=== PATIENT | male | born 1940 | race African-American/Black ===

== ENCOUNTER 2016-07-26 16:39 | Emergency (ER) | payer OTHER ==
[~2016-07-26] VITALS: Ht 177.8 cm; Wt 78.7 kg
[~2016-07-26 16:39] MED LIST: ACET325T96 PO; ALLO100T PO; ARTISOL12 OPB; ASPCH81X PO; CALC625T PO; CILO50TA9 PO; ENAL10TA88 PO; FLUO20CA35 PO; HYDR25TA4 PO; INSDGI SC; INSUINJ17 SQ; LATA0.009 OPR; LORA10CA2 PO; LPR25 PO; NITR0.4S UT; PRAV40TA PO; RISP0.5T3 PO; TIMO0.2534 OPB; [UNRECOGNIZED DRUG - CODE] PO
[2016-07-26 16:54] VITALS: TEMP 36.6; Ht 177.8 cm; Wt 78.7 kg
[2016-07-26] MEDS ORDERED: SODIUM CHLORIDE 0.9% 500ML 500 ML IV STA (17:10)
--- NOTE | 2016-07-26 17:19 | EMERGENCY ROOM VISIT NOTE ---
History Report prepared by Hollyibalexandra: Jazmín Caputo Under the Supervision of: Dr. Marquez Rome D.O. First contact with patient: 17:04 Chief Complaint: HYPOGLYCEMIA Stated Complaint: HYPOGLYCEMIA Nursing Triage Summary: found in cell combative diaphoretic and confused blood sugar 30 History of Present Illness The patient is a 75 year old male who presents to the Emergency Room via ambulance with complaints of an episode of hypoglycemia this evening. The patient has a history of diabetes and is on insulin. The patient notes that he was feeling fine throughout the day today and ate lunch. He was given insulin by his nurse this morning but was not given insulin after lunch. His blood sugar was normal at lunch so he was not given insulin. The patient was writing a letter to his daughter this evening and does not remember anything after that. Per [facility] guards, the patient became very combative, confused, and diaphoretic. His blood sugar was 30 at that time. He was given Glucagon at the [facility]. En route to the emergency room he was given Dextrose IV. His blood sugar in the ambulance was 62 and improved to 76 upon arrival to the ED. Per nursing staff, the patient's clothes were drenched in sweat and he was incontinent of urine upon arrival. Denies headaches, chest pain, shortness of breath, nausea, vomiting, or other complaints Source of History: patient Onset: this evening Position: other (global) Symptom Intensity: blood sugar 30 Quality: other (hypoglycemia) Modifying Factors (Relieving): other (Dextrose) Associated Symptoms: + diaphoresis, + urinary symptoms (incontinent), No SOB , No chest pain, No headache, No nausea, No vomiting Note: Other symptoms: confused Review of Systems See HPI for pertinent positives & negatives. A total of 10 systems reviewed and were otherwise negative. Past Medical & Surgical Medical Problems: (1) CELINE (acute kidney injury) (2) Diabetes (3) Pancreatitis Surgical Problems: (1) H/O hernia repair Family History No pertinent family history stated. Social History Smoking Status: Current Every Day Smoker Housing Status: other (usp) Current/Historical Medications Scheduled Allopurinol (Zyloprim), 200 MG PO DAILY Aspirin (Aspirin Chewable), 81 MG PO DAILY Calcium Polycarbophil (Fibercon), 2 CAP PO BID Cilostazol (Pletal), 50 MG PO BID Enalapril (Vasotec), 10 MG PO DAILY Fluoxetine (Prozac), 40 MG PO DAILY Hydrochlorothiazide (Hctz), 25 MG PO DAILY Insulin Glargine (Lantus), 45 UNITS SC QAM Insulin Regular (Humulin-R), 14 UNITS SL TID Isosorbide Dinitrate (Isordil Tab), 30 MG PO BID Latanoprost 0.005% Oph (Xalatan 0.005% Oph), 1 DROP OPR HS Loratadine (Claritin), 10 MG PO QAM Metoprolol Tartrate (Lopressor), 25 MG PO BID Nitroglycerin (Nitrostat), 0.4 MG UT PRN Pravastatin Sodium (Pravachol), 40 MG PO HS Risperidone (Risperdal), 0.5 MG PO BID Timolol Maleate 0.5% Oph (Timoptic 0.5% Oph), 1 DROP OPB BID Scheduled PRN Acetaminophen Tab (Tylenol), 650 MG PO TID PRN for Pain Artificial Tear Solution (Artificial Tears), 1 DROP OPB TID PRN for DRY EYES Allergies Coded Allergies: Vitamin K (Verified Allergy, Unknown, UNKNOWN, 05/14/14) Physical Exam Vital Signs Date Time Temp Pulse Resp B/P Pulse Ox O2 Delivery O2 Flow Rate FiO2 07/26/16 19:43 63 16 116/76 97 07/26/16 19:25 61 16 141/46 98 Room Air 07/26/16 18:13 69 16 151/59 97 Room Air 07/26/16 16:54 36.6 52 20 190/65 96 Room Air 07/26/16 16:51 58 Physical Exam GENERAL: Patient is awake, alert, slow to answer questions but responds appropriately. EYES: The conjunctivae are clear. The pupils are round and reactive. EARS, NOSE, MOUTH AND THROAT: The nose is without any evidence of any deformity. Mucous membranes are dry. tongue is midline NECK: The neck is nontender and supple. RESPIRATORY: Normal respiratory effort is noted there is no evidence of wheezing rhonchi or rales CARDIOVASCULAR: Regular rate and rhythm noted there no murmurs rubs or gallops normal S1 normal S2 GASTROINTESTINAL: The abdomen is soft. Bowel sounds are present in all quadrants. Abdomen is nontender MUSCULOSKELETAL/EXTREMITIES: There is no evidence of gross deformity full range of motion is noted in the hips and shoulders SKIN: Trace pedal edema bilaterally. Venostasis changes were noted in both lower extremities. NEUROLOGIC: Patient is awake alert and oriented x3, no facial droop was noted, strength is symmetric. Medical Decision & Procedures Laboratory Results 07/26/16 18:04 Red Blood Count 4.06, Mean Corpuscular Volume 90.9, Mean Corpuscular Hemoglobin 30.0, Mean Corpuscular Hemoglobin Concent 33.1, Mean Platelet Volume 9.8, Neutrophils (%) (Auto) 76.8, Lymphocytes (%) (Auto) 15.2, Monocytes (%) (Auto) 5.0, Eosinophils (%) (Auto) 2.4, Basophils (%) (Auto) 0.4, Neutrophils # (Auto) 9.26, Lymphocytes # (Auto) 1.83, Monocytes # (Auto) 0.60, Eosinophils # (Auto) 0.29, Basophils # (Auto) 0.05 07/26/16 18:04 Test 07/26/16 16:52 07/26/16 18:04 07/26/16 18:35 Bedside Glucose 76 mg/dl (70-99) White Blood Count 12.05 K/uL (4.8-10.8) Red Blood Count 4.06 M/uL (4.7-6.1) Hemoglobin 12.2 g/dL (14.0-18.0) Hematocrit 36.9 % (42-52) Mean Corpuscular Volume 90.9 fL (80-100) Mean Corpuscular Hemoglobin 30.0 pg (25-34) Mean Corpuscular Hemoglobin Concent 33.1 g/dl (32-36) Platelet Count 221 K/uL (130-400) Mean Platelet Volume 9.8 fL (7.4-10.4) Neutrophils (%) (Auto) 76.8 % Lymphocytes (%) (Auto) 15.2 % Monocytes (%) (Auto) 5.0 % Eosinophils (%) (Auto) 2.4 % Basophils (%) (Auto) 0.4 % Neutrophils # (Auto) 9.26 K/uL (1.4-6.5) Lymphocytes # (Auto) 1.83 K/uL (1.2-3.4) Monocytes # (Auto) 0.60 K/uL (0.11-0.59) Eosinophils # (Auto) 0.29 K/uL (0-0.5) Basophils # (Auto) 0.05 K/uL (0-0.2) RDW Standard Deviation 44.4 fL (36.4-46.3) RDW Coefficient of Variation 13.4 % (11.5-14.5) Immature Granulocyte % (Auto) 0.2 % Immature Granulocyte # (Auto) 0.02 K/uL (0.00-0.02) Prothrombin Time 10.7 SECONDS (9.0-12.0) Prothromb Time International Ratio 1.0 (0.9-1.1) Activated Partial Thromboplast Time 30.8 SECONDS (21.0-31.0) Partial Thromboplastin Ratio 1.2 Anion Gap 8.0 mmol/L (3-11) Est Creatinine Clear Calc Drug Dose 47.8 ml/min Estimated GFR () 57.0 Estimated GFR (Non- 49.1 BUN/Creatinine Ratio 10.8 (10-20) Calcium Level 9.1 mg/dl (8.5-10.1) Total Bilirubin 0.4 mg/dl (0.2-1) Direct Bilirubin 0.1 mg/dl (0-0.2) Aspartate Amino Transf (AST/SGOT) 16 U/L (15-37) Alanine Aminotransferase (ALT/SGPT) 21 U/L (12-78) Alkaline Phosphatase 98 U/L (45-117) Total Creatine Kinase 150 U/L (39-308) Creatine Kinase MB 1.4 ng/ml (0.5-3.6) Creatine Kinase MB Ratio 0.9 (0-3.0) Troponin I 0.025 ng/ml (0-0.045) Total Protein 8.4 gm/dl (6.4-8.2) Albumin 3.4 gm/dl (3.4-5.0) Lipase 64 U/L (73-393) Urine Color YELLOW Urine Appearance CLEAR (CLEAR) Urine pH 7.0 (4.5-7.5) Urine Specific [place] 1.008 (1.000-1.030) Urine Protein NEG (NEG) Urine Glucose (UA) NEG (NEG) Urine Ketones NEG (NEG) Urine Occult Blood NEG (NEG) Urine Nitrite NEG (NEG) Urine Bilirubin NEG (NEG) Urine Urobilinogen NEG (NEG) Urine Leukocyte Esterase NEG (NEG) Laboratory results per my review. Medications Administered Medications (Trade) Dose Ordered Sig/Fuentes Route Start Time Stop Time Status Last Admin Dose Admin Sodium Chloride (Nss 500ml) 500 ml @ 999 mls/hr Q31M STAT IV 07/26/16 17:10 07/26/16 17:40 DC 07/26/16 18:13 999 MLS/HR ECG Indication: altered mental status Rate (beats per minute): 52 Rhythm: sinus bradycardia Findings: T-wave inversion (Inferior), no ectopy Comparison ECG Date: 05/17/14 Change: ST segment abnormality is new ED Course 1709: The patient was evaluated in room B5. A complete history and physical examination were performed. Orderd NSS 500 ml @ 999 mls/hr IV. 1912: Upon reevaluation, the patient is resting comfortably. I discussed the results and treatment plan with him. The patient verbalized agreement of the treatment plan. He was discharged home. Medical Decision Prior records/ancillary studies reviewed and summarized above. Nursing notes reviewed. Additional history obtained from [facility] staff. The patient's history was concerning for hypoglycemia. Differential diagnosis: Etiologies such as metabolic, infection, hypo/hyperglycemia, electrolyte abnormalities, cardiac sources, intracerebral event, toxicologic, neurologic, as well as others were entertained. The patient is a 75-year-old male who presented to the emergency department for an evaluation of hyperglycemia. The patient is an insulin-dependent diabetic. The patient's glucose was corrected and he was reevaluated multiple times. He was feeling much better on subsequent reevaluation in and was awake and alert. I discussed patient's laboratory results with him. He also had some abdomen abnormalities noted on EKG. He was encouraged to discuss with the [facility] physician follow-up for this which could include stress test or echocardiogram. Otherwise he was encouraged to continue all medications as prescribed and monitor his blood sugar. He was also encouraged to return to the emergency department immediately if symptoms change worsen or the need arises. Impression Primary Impression: Hypoglycemia Additional Impression: Abnormal EKG Scribe Attestation The scribe's documentation has been prepared under my direction and personally reviewed by me in its entirety. I confirm that the note above accurately reflects all work, treatment, procedures, and medical decision making performed by me. Departure Information Dispostion Home / Self-Care Referrals No Doctor, Assigned (PCP) Son [facility] DOCUMENTATION FORM, IMPORTANT VISIT INFORMATION, WORK / SCHOOL INSTRUCTIONS Patient Instructions Hypoglycemia, My [facility] Additional Instructions Follow-up with the [facility] physician this week for reevaluation. I would recommend repeat cardiac workup including a stress test and an echocardiogram for further evaluation of her abnormal EKG that was found in the emergency department today. Continue to all meals. Do not miss any meals. Problem Qualifiers
[2016-07-26 18:11] LABS: BASO % 0.4 %; BASO ABS # 0.05 K/uL (0-0.2); COMPLETE YES; EOS % 2.4 %; HEMATOCRIT 36.9 % (42-52); IG% 0.2 %; LYMPH % 15.2 %; LYMPH ABS # 1.83 K/uL (1.2-3.4); MEAN CELL VOLUME 90.9 fL (80-100); MEAN CORPUSCULAR HGB CONC 33.1 g/dl (32-36); MEAN PLATELET VOLUME 9.8 fL (7.4-10.4); NEUT % 76.8 %; PLATELET COUNT 221 K/uL (130-400); RED BLOOD COUNT 4.06 M/uL (4.7-6.1); WHITE BLOOD COUNT 12.05 K/uL (4.8-10.8)
[2016-07-26 18:22] LABS: PARTIAL THROMBOPLASTIN RATIO 1.2; PROTHROMBIN TIME (PATIENT) 10.7 SECONDS (9.0-12.0)
[2016-07-26 18:30] LABS: BUN/CREATININE RATIO 10.8 (10-20); CALCIUM 9.1 mg/dl (8.5-10.1); CREATININE 1.4 mg/dl (0.60-1.40); POTASSIUM 3.6 mmol/L (3.5-5.1)
[2016-07-26 18:35] LABS: CKMB/CK RATIO 0.9 (0-3.0)
[2016-07-26 18:56] LABS: URINE APPEARANCE CLEAR (CLEAR); URINE BILIRUBIN NEG (NEG); URINE COLOR YELLOW; URINE NITRITE NEG (NEG); URINE SPECIFIC GRAVITY 1.008 (1.000-1.030); UROBILINOGEN NEG (NEG)
[2016-07-26 18:59] LABS: MANUAL MICROSCOPIC REQUIRED? NO; REVIEW REQ? NO
[2016-07-26 19:43] VITALS: BP 116/76; PULSE 63; O2SAT 97
== END 2016-07-26 19:44 | disposition home or self-care (01) ==
LOC: EDBD 16:39 → C.EDB 16:40
DX: E11.649 Type 2 diabetes mellitus with hypoglycemia without coma (principal); Z79.4 Long term (current) use of insulin; F17.210 Nicotine dependence, cigarettes, uncomplicated; Z79.82 Long term (current) use of aspirin; Z79.899 Other long term (current) drug therapy; R94.31 Abnormal electrocardiogram [ECG] [EKG]

== ENCOUNTER 2016-12-02 12:59 | Inpatient (IN) | payer OTHER ==
[2016-12-02] VITALS (12 sets, daily range): BP systolic 134–178; BP diastolic 60–78; PULSE 49–65; TEMP 36.6–36.7; O2SAT 94–100; Ht 177.8 cm; Wt 77.5 kg
[~2016-12-02] VITALS: Ht 177.8 cm; Wt 77.5 kg
[2016-12-02] MEDS ORDERED: SODIUM CHLORIDE 0.9% 1000ML 1,000 ML IV STA (13:09)
[2016-12-02] MEDS ORDERED: FENTANYL CITRATE INJ 50 MCG/1 ML 2 ML VIAL IV STA (13:09)
[2016-12-02] MEDS ORDERED: NITROGLYCERIN 0.4 MG SL PER TAB CHARGE SL PRN (13:15)
[2016-12-02 13:21] LABS: BASO % 0.5 %; BASO ABS # 0.03 K/uL (0-0.2); COMPLETE YES; HEMATOCRIT 35.2 % (42-52); IG% 0.2 %; LYMPH % 35.2 %; LYMPH ABS # 2.21 K/uL (1.2-3.4); MEAN CELL VOLUME 94.4 fL (80-100); MEAN CORPUSCULAR HEMOGLOBIN 31.1 pg (25-34); MEAN PLATELET VOLUME 10.3 fL (7.4-10.4); MONO % 7.2 %; NEUT % 49.9 %; PLATELET COUNT 153 K/uL (130-400); RED BLOOD COUNT 3.73 M/uL (4.7-6.1); WHITE BLOOD COUNT 6.28 K/uL (4.8-10.8)
--- NOTE | 2016-12-02 13:25 | DIAGNOSTIC IMAGING REPORT ---
CHEST ONE VIEW PORTABLE CLINICAL HISTORY: Chest pain. COMPARISON STUDY: Chest radiograph May 14, 2014. FINDINGS: Pacer pads overlie the chest. There is no pneumothorax or pleural effusion. Mild cardiomegaly is unchanged. There is pulmonary vascular congestion without overt pulmonary edema. No consolidation is identified. IMPRESSION: 1. Pulmonary vascular congestion. 2. Mild cardiomegaly. Electronically signed by: Robert Atkins M.D. 12/02/2016 1:24 PM Dictated Date/Time: 12/02/2016 1:22 PM
[2016-12-02] MEDS ORDERED: NiCARDipine HCL INJ 2.5 MG/ML 10 ML AMP ONE (13:31)
[2016-12-02] MEDS ORDERED: HEPARIN SOD (PORCINE) 1000 UNIT/ML 10 ML VIAL ONE (13:31)
[2016-12-02] MEDS ORDERED: MIDAZOLAM HCL 1 MG/ML 2ML VIAL ONE (13:31)
[2016-12-02] MEDS ORDERED: NITROGLYCERIN/D5W 100MCG/ML 20ML SYR ONE (13:32)
[2016-12-02] MEDS ORDERED: DOCU100C31 PO (13:35)
[2016-12-02] MEDS ORDERED: CLOP1TAB15 PO (13:35)
[2016-12-02] MEDS ORDERED: DORZ2SOL17 OP (13:35)
[2016-12-02 13:36] LABS: CALCIUM 9.1 mg/dl (8.5-10.1)
[2016-12-02 13:37] LABS: ISTAT CREATININE 1.2 mg/dl (0.6-1.3); ISTAT HEMOGLOBIN 11.9 g/dl (14.0-18.0); ISTAT IONIZED CALCIUM 1.3 mmol/l (1.12-1.32)
[2016-12-02 13:40] LABS: CREATININE 1.4 mg/dl (0.60-1.40); POTASSIUM 4.3 mmol/L (3.5-5.1)
--- NOTE | 2016-12-02 13:40 | Procedure Note ---
Pre-Mod Sedation Assessment General Date of Moderate Sedation: Dec 02, 2016. Vital Signs: Vital Signs Past 12 Hours Date Time Temp Pulse Resp B/P (MAP) Pulse Ox O2 Delivery O2 Flow Rate FiO2 12/02/16 13:23 62 17 154/72 97 Room Air 12/02/16 13:16 58 12/02/16 13:10 36.7 74 22 126/63 99 Room Air 12/02/16 13:01 Room Air Review Cardiovascular: regular rate, rhythm, no edema, no gallop, no JVD, + systolic murmur Abdomen: non tender, soft Lungs: lungs clear Pre-Sedation Airway Assessment Oral Cavity: Dental Abnormalities (Edentulous) Able to Visualize Vocal Cords: No Short Thick Neck: No Hx of Sleep Apnea: No Smoking Status: Current Every Day Smoker Mallampati Classification: Class III Procedure Planning Yes Notes The planned sedation has been discussed with the patient and consent obtained. I have identified the patient, determined the appropriateness of sedation and have assessed the patient immediately prior to the procedure. All medicine(s) and interventions are by my order.
--- NOTE | 2016-12-02 13:42 | Cardiac Catheterization ---
Procedure Note Procedure Date Dec 02, 2016. Pre-Procedure Diagnosis STEMI AUC Score 9 Post-Procedure Diagnosis Mild CAD, Normal LV Systolic Function, Normal Intracardiac Pressures Procedure(s) Performed Coronary Angiography, Left Heart Cath, LV Angiography Donor Relations Associate Dr. Allen Tomato Paste Maker(s) Iris ZhengRTR Estimated Blood Loss 10 ml Medication(s) Fentanyl, Heparin, Nicardipine, Versed, Lidocaine 1% Summary of Findings Clinical indications: Acute chest pain in patient with CAD risk factors of diabetes mellitus, hypertension, dyslipidemia, family history of coronary artery disease, and cigarette smoking. Also history of peripheral arterial disease. Electrocardiogram with peak T-waves in the anterior leads associated with slight ST segment elevations. The patient reported a history of having had coronary artery stents. Catheterization site: 6 American glide sheath right radial artery. Catheters: It was 1st attempted to perform left coronary angiography using a 6 American EBU 3.75 guide catheter. This catheter would not cannulate the left main coronary artery. It was exchanged for a 6 American ALR1-2 guide catheter. Catheter was able to perform nonselective angiography of both the left and right coronary arteries. It was exchanged for a 6 American AL1 guide catheter. Selective left coronary angiography was then performed. Was then exchanged back for the ALR1-2 guide catheter. This catheter was then used to perform selective right coronary angiography. Left heart catheterization and left ventricular angiography were performed using a 6 American pigtail catheter. Hemostasis: Terumo TR band. Complications: None. Findings: Fluoroscopy revealed very minor coronary calcifications. There was no visualization of any coronary artery stents on fluoroscopy or angiography. The coronary circulation was codominant. The left main coronary artery was a large caliber vessel with ostial and distal 20 percent stenoses. Left main gave rise to medium to large caliber left anterior descending and left circumflex coronary arteries. It also gave rise to a small to medium caliber ramus artery. The ramus had 0-10 percent stenoses in its proximal and mid segment. The proximal LAD had 0-10 percent stenosis. The proximal LAD gave rise to a very small caliber 1st diagonal artery. Early mid LAD gave rise to a very small caliber 2nd diagonal artery. The mid LAD gave rise to a long medium caliber 3rd diagonal artery. The 3rd diagonal had 0-10 percent stenoses in its proximal, mid, and distal segment. The mid LAD had a 20 percent stenosis. The distal LAD terminated at the apex of the heart as a very small caliber vessel. The proximal left circumflex had a 20 percent stenosis. The mid circumflex gave rise to a small caliber marginal artery. Mid and distal circumflex had 0- 10 percent luminal diameter narrowing. The distal circumflex then gave rise to a very small caliber posterolateral artery. This vessel had no obstructive disease. The right coronary artery was a large caliber vessel. Mid segment with diffuse 10-30 percent stenoses. Distal segment with diffuse 10-20 percent stenoses. The distal RCA gave rise to a long medium caliber posterior descending artery which had a 20 percent ostial and proximal stenosis. TERENCE 3 flow was present throughout all coronary arteries and branches. There was no evidence of any intracoronary thrombus or dissection. Left ventricular angiography performed from the 30 degree right anterior oblique projection using a hand injection of contrast dye revealed all left ventricular wall segments to contract normally. The calculated LV ejection fraction was 64 percent. No mitral regurgitation was noted. Conclusions: Mild coronary artery disease. Normal left ventricular systolic function and ejection fraction. Normal left ventricular end diastolic pressure. Plan: There is no indication for coronary revascularization procedure. Would obtain serial electrocardiograms and cardiac enzymes. Cannot exclude the patient had transient intracoronary obstruction secondary to a thrombus and/or spasm. Would continue on aspirin and clopidogrel. Continue maximum therapy for CAD risk factor modification. Evaluate for noncardiac etiology to his chest pain. Of note is the patient has a history of pancreatic disease. On physical exam prior to the catheterization procedure he had abdominal tenderness. Would check pancreatic enzymes and liver function test. Hemodynamics Rest Ao: 144/42/82 mm Hg Final Ao: 156/58/96 mm Hg LV: 157/12 mm Hg Recommendations Medical therapy and/or Counseling Specimens None Radiation Exposure (mGy) 1021 Contrast (mls) 150 ml Visipaque Fluids (cc crystalloids) 61 Drains none Anesthesia Intravenous Versed and fentanyl. Lidocaine 1 percent for local anesthesia. Procedural Complication(s) None Disposition PCU ACC Data Cardiac Status Clinical evaluation leading to the procedure CAD Presntation: STEMI STEMI or Non-STEMI: Thrombolytics: No Anginal Classification: CCS IV Heart Failure: No Cardiogenic Shock w/in 24Hrs: No Cardiac Arrest w/in 24Hrs: No Imaging studies past 6 months: No Stress studies past 6 months: No Standard Exercise Stress Test: No Stress Echocardiogram: No Stress Testing w/SPECT MPI: No Cardiac CTA: No Coronary Anatomy Dominant: Co-dominant Left Main (% Stenosis): Ostial (20The), Distal (20) LAD (% Stenosis): Proximal (0-10), Mid (20) D1 (% Stenosis): Normal D2 (% Stenosis): Normal D3 (% Stenosis): Proximal (0-10), Mid (0-10), Distal (0-10) Circumflex (% Stenosis): Proximal (20), Mid (0-10), Distal (0-10) OM1 (% Stenosis): Normal L PL1 (% Stenosis): Normal RCA (% Stenosis): Mid (10-30), Distal (10-20) R PDA (% Stenosis): Ostial (20), Proximal (20) Left Ventricular Angiography EF (%): 64 Wall Motion: Inferior (Normal), Apical (Normal), Anterior (Normal) Mitral Regurgitation: None Diagnostic Physician's Name: Alejandro Allen M.D. Status: Emergency Closure Device Percutaneous Entry Location: Radial Closure Device: Radial Band Recommendations: Medical therapy and/or Counseling
--- NOTE | 2016-12-02 13:57 | EMERGENCY ROOM VISIT NOTE ---
History Report prepared by Ej: Kaylyn Estes Under the Supervision of: Dr. Jack Barr M.D. First contact with patient: 13:02 Chief Complaint: CARDIAC ASSESSMENT Stated Complaint: CHEST/BACK PAIN Nursing Triage Summary: back pain started at noon when awoken for meds. pt a/ox4, no sob, pt given ntg per als and 324 asa. pt reduced to a 3/10 after. History of Present Illness The patient is a 76 year old male who presents to the Emergency Room via EMS from [facility] with complaints of improved left sided chest pain starting about an hour ago. He woke up with the pain. He has pain radiation to the left arm. He also complains of back pain. He received Aspirin and Nitro in route to the Emergency Room with some improvement. He currently denies any shortness of breath. He denies any heart palpitations, lower extremity swelling, or any other complaints. He is unsure about being placed on any blood thinners. He has a history of a myocardial infarction and reports similar symptoms today. He has a history of diabetes, hypertension, and high cholesterol. He has been smoking a pack a day since he was a teenager. He had previous stenting several years ago at [facility]. He also has a history of DVT in the right leg after surgery as well as a history of bleeding from his stomach. He cannot remember if the stomach bleeding or the pancreas was the reason for the abdominal surgery many years ago. Source of History: patient Onset: about an hour ago Position: chest (left), other Timing: other (improved) Modifying Factors (Relieving): other (Aspirin and Nitro with some improvement) Associated Symptoms: + back pain, No SOB Review of Systems See HPI for pertinent positives & negatives. A total of 10 systems reviewed and were otherwise negative. Past Medical & Surgical Medical Problems: (1) Acute renal failure (2) CELINE (acute kidney injury) (3) Chest pain (4) Colitis (5) Dehydration (6) Diabetes (7) Diarrhea (8) DVT (deep venous thrombosis) (9) High cholesterol (10) Hypertension (11) Hypotension (12) Pancreatitis (13) Syncope Surgical Problems: (1) H/O hernia repair Family History Diabetes mellitus Social History Smoking Status: Current Every Day Smoker Marital Status: single Housing Status: other Occupation Status: other (Prisoner) Current/Historical Medications Scheduled Allopurinol (Zyloprim), 200 MG PO DAILY Aspirin (Aspirin Chewable), 81 MG PO DAILY Calcium Polycarbophil (Fibercon), 2 CAP PO BID Clopidogrel (Plavix), 75 MG PO DAILY Docusate Sodium (Docusate Sodium), 100 MG PO BID Dorzolamide Hcl (Trusopt Oph), 1 DROPS OP BID Enalapril (Vasotec), 10 MG PO DAILY Fluoxetine (Prozac), 30 MG PO DAILY Hydrochlorothiazide (Hctz), 25 MG PO DAILY Insulin Glargine (Lantus), 35 UNITS SC QAM Insulin Regular (Humulin-R), 1 DOSE SQ TID Isosorbide Dinitrate (Isordil Tab), 30 MG PO BID Latanoprost 0.005% Oph (Xalatan 0.005% Oph), 1 DROP OPR HS Nitroglycerin (Nitrostat), 0.4 MG UT PRN Pravastatin Sodium (Pravachol), 40 MG PO HS Risperidone (Risperdal), 0.25 MG PO HS Timolol Maleate 0.5% Oph (Timoptic 0.5% Oph), 1 DROP OPB BID Scheduled PRN Artificial Tear Solution (Artificial Tears), 1 DROP OPB TID PRN for DRY EYES Allergies Coded Allergies: Vitamin K (Verified Allergy, Unknown, UNKNOWN, 12/02/16) Physical Exam Vital Signs Date Time Temp Pulse Resp B/P (MAP) Pulse Ox O2 Delivery O2 Flow Rate FiO2 12/02/16 13:23 62 17 154/72 97 Room Air 12/02/16 13:16 58 12/02/16 13:10 36.7 74 22 126/63 99 Room Air 12/02/16 13:01 Room Air Physical Exam GENERAL: Patient is uncomfortable appearing and in moderate distress. HEENT: No acute trauma, normocephalic atraumatic, mucous membranes moist, no nasal congestion, no scleral icterus. NECK: No stridor, no adenopathy, no meningismus, trachea is midline. LUNGS: No dyspnea. Clear to auscultation and equal bilaterally. No wheeze, no rhonchi. HEART: Regular rate and rhythm. No murmurs, rubs, gallops appreciated. ABDOMEN: Soft, nontender, bowel sounds positive, no masses appreciated, no peritonitis. BACK: No midline tenderness, no CVA tenderness EXTREMITIES: Normal motion all extremities, no cyanosis, no edema. NEUROLOGIC: Alert and oriented, no acute motor or sensory deficits, no focal weakness, cranial nerves grossly intact. SKIN: No rash, no jaundice, no diaphoresis. Medical Decision & Procedures ER Provider Diagnostic Interpretation: X ray results are stated below per my interpretation and the radiologist's interpretation. CHEST ONE VIEW PORTABLE CLINICAL HISTORY: Chest pain. COMPARISON STUDY: Chest radiograph May 14, 2014. FINDINGS: Pacer pads overlie the chest. There is no pneumothorax or pleural effusion. Mild cardiomegaly is unchanged. There is pulmonary vascular congestion without overt pulmonary edema. No consolidation is identified. IMPRESSION: 1. Pulmonary vascular congestion. 2. Mild cardiomegaly. Electronically signed by: Robert Atkins M.D. 12/02/2016 1:24 PM Dictated Date/Time: 12/02/2016 1:22 PM Laboratory Results 12/02/16 13:06 Red Blood Count 3.73, Mean Corpuscular Volume 94.4, Mean Corpuscular Hemoglobin 31.1, Mean Corpuscular Hemoglobin Concent 33.0, Mean Platelet Volume 10.3, Neutrophils (%) (Auto) 49.9, Lymphocytes (%) (Auto) 35.2, Monocytes (%) (Auto) 7.2, Eosinophils (%) (Auto) 7.0, Basophils (%) (Auto) 0.5, Neutrophils # (Auto) 3.14, Lymphocytes # (Auto) 2.21, Monocytes # (Auto) 0.45, Eosinophils # (Auto) 0.44, Basophils # (Auto) 0.03 12/02/16 13:06 Test 12/02/16 13:06 12/02/16 13:24 White Blood Count 6.28 K/uL (4.8-10.8) Red Blood Count 3.73 M/uL (4.7-6.1) Hemoglobin 11.6 g/dL (14.0-18.0) Hematocrit 35.2 % (42-52) Mean Corpuscular Volume 94.4 fL (80-100) Mean Corpuscular Hemoglobin 31.1 pg (25-34) Mean Corpuscular Hemoglobin Concent 33.0 g/dl (32-36) Platelet Count 153 K/uL (130-400) Mean Platelet Volume 10.3 fL (7.4-10.4) Neutrophils (%) (Auto) 49.9 % Lymphocytes (%) (Auto) 35.2 % Monocytes (%) (Auto) 7.2 % Eosinophils (%) (Auto) 7.0 % Basophils (%) (Auto) 0.5 % Neutrophils # (Auto) 3.14 K/uL (1.4-6.5) Lymphocytes # (Auto) 2.21 K/uL (1.2-3.4) Monocytes # (Auto) 0.45 K/uL (0.11-0.59) Eosinophils # (Auto) 0.44 K/uL (0-0.5) Basophils # (Auto) 0.03 K/uL (0-0.2) RDW Standard Deviation 48.9 fL (36.4-46.3) RDW Coefficient of Variation 14.3 % (11.5-14.5) Immature Granulocyte % (Auto) 0.2 % Immature Granulocyte # (Auto) 0.01 K/uL (0.00-0.02) Est Creatinine Clear Calc Drug Dose 44.2 ml/min Estimated GFR () 56.6 Estimated GFR (Non- 48.8 BUN/Creatinine Ratio 10.0 (10-20) Calcium Level 9.1 mg/dl (8.5-10.1) Total Creatine Kinase 126 U/L (39-308) Creatine Kinase MB 1.3 ng/ml (0.5-3.6) Creatine Kinase MB Ratio 1.0 (0-3.0) Troponin I 0.020 ng/ml (0-0.045) Bedside Hemoglobin 11.9 g/dl (14.0-18.0) Bedside Hematocrit 35 % (42-52) Bedside Sodium 141 mEq/L (135-144) Bedside Potassium 4.4 mEq/L (3.3-5.0) Bedside Chloride 99 mEq/L (101-112) Bedside Total CO2 27 mEq/l (24-31) Anion Gap 20.0 mmol/L (16-25) Bedside Blood Urea Nitrogen 15 mg/dl (7-18) Bedside Creatinine 1.2 mg/dl (0.6-1.3) Bedside Glucose (other) 282 mg/dl (70-99) Bedside Ionized Calcium (Marleny) 1.30 mmol/l (1.12-1.32) Laboratory results as reviewed by me. Medications Administered Medications (Trade) Dose Ordered Sig/Fuentes Route Start Time Stop Time Status Last Admin Dose Admin Nitroglycerin (Nitrostat Tab) 0.4 mg PRN PRN SL 12/02/16 13:15 12/02/16 14:54 DC 12/02/16 13:17 0.4 MG Sodium Chloride 1,000 ml @ 999 mls/hr Q1H1M STAT IV 12/02/16 13:09 12/02/16 14:09 DC 12/02/16 13:09 999 MLS/HR Fentanyl Citrate (Fentanyl Inj) 50 mcg NOW STAT IV 12/02/16 13:09 12/02/16 13:11 DC 12/02/16 13:17 50 MCG ECG Indication: chest pain Rate (beats per minute): 56 Rhythm: sinus bradycardia Findings: no ectopy, other (Acute ST elevation in anterior leads with hyperacute T waves) Change: Acute ST elevation in ant leads with hyperacute T waves are acute changes when compared to previous EKG by EMS. ED Course 1302: The patient was evaluated in room B09. A complete history and physical exam was performed. 1309: Fentanyl Inj 50 mcg IV, Sodium Chloride 1000 ml @ 999 mls/hr IV 1315: Nitroglycerin 0.4 mg SL 1326: I reevaluated the patient whose pain has improved. Discussed results and treatment plan with the patient. He verbalized understanding and agreement with the treatment plan. I discussed the patient's case with Dr. Allen, lsat instructor with [facility]. He evaluated the patient and agreed to take him to the [facility]. 1358: I discussed the patient's case with Dr. Andrews, from [facility] Hospitalist Service. Medical Decision Differential: Cardiac Ischemia (STEMI, NSTEMI, Unstable Angina, etc), Aortic Dissection, Arrhythmia, Pulmonary Embolism, Pneumonia, Pneumothorax, MSK, Infectious, Pericarditis/Myocarditis, Esophageal Rupture, Gastrointestinal, amongst other pathologies entertained. Medication Reconciliation: I attest that I have personally reviewed the patient 's current medication list. Blood pressure screening: Patient was found to have an elevated blood pressure and was referred to the hospitalist for recheck and further treatment. 76 yr old male made aware to me by EMS prior to arrival. Initial EKG by EMS not consistent with STEMI with poor baseline. On arrival patient already received ASA/SLNTG. EKG on arrival shows developing STEMI, very early with significant upsloping ST segments. This is acute change from previous EKG. Patient stating history of CAD with stents placed in past. Extensive PMH with multiple CAD risk factors. Given small dose IV fentanyl along with further SLNTG. Initial labs sent, CXR obtained. Non-focal exam without any specific findings to point to dissection, pe, etc. Notes history of DVT though no evidence of that currently. He has no SHOB, nor tearing chest pain, nor syncope. Interventional Cards in to see and agree with concern for STEMI and will take for heart cath. Hospitalist made aware of patient while en route to [facility]. Consults Time Called: 1320 Consulting Physician: Dr. Allen, lsat instructor with [facility] Returned Call: 1326 I discussed the patient's case with Dr. Allen, lsat instructor with [facility]. He evaluated the patient and agreed to take him to the [facility]. Additional Consults: Time Called: 1326 [facility]ed [facility] Returned Call: 1358 Additional Comments: I discussed the patient's case with Dr. Andrews[facility]. Impression Primary Impression: ST elevation myocardial infarction (STEMI) of anterior wall Critical Care I have personally spent greater than 45 minutes of critical care time in the direct management of this patient. This includes bedside care, interpretation of diagnostic studies, and testing, discussion with consultants, patient, and other required patient management activities. This 45 minutes is in excess of all separately billable procedures. Scribe Attestation The scribe's documentation has been prepared under my direction and personally reviewed by me in its entirety. I confirm that the note above accurately reflects all work, treatment, procedures, and medical decision making performed by me. Departure Information Dispostion Being Evaluated By Hospitalist Referrals Son SHERIFF (PCP) Patient Instructions [facility]
[2016-12-02] MEDS ORDERED: SODIUM CHLORIDE 0.9% 1000ML 250 ML IV PRN (14:34)
[2016-12-02] MEDS: SODIUM CHLORIDE 0.9% 1000ML 1,000 ML IV SCH (14:40)
[2016-12-02] MEDS ORDERED: ARTIFICIAL TEARS OP SOLN OPB PRN ×2 (14:45)
[2016-12-02] MEDS ORDERED: ATROPINE SULFATE 0.1 MG/ML 5ML SYR IV PRN (14:45)
[2016-12-02] MEDS ORDERED: NITROGLYCERIN 0.4 MG SL PER TAB CHARGE UT PRN (14:45)
[2016-12-02] MEDS ORDERED: ONDANSETRON INJ 2 MG/ML 2 ML VIAL IV PRN ×2 (14:45→15:30)
[2016-12-02] MEDS ORDERED: ACETAMINOPHEN 325 MG TAB PO PRN (14:45)
--- NOTE | 2016-12-02 14:45 | Procedure Note ---
Post-Mod Sedation Assessment General Date of Moderate Sedation Dec 02, 2016. Vital Signs: Vital Signs Past 12 Hours Date Time Temp Pulse Resp B/P (MAP) Pulse Ox O2 Delivery O2 Flow Rate FiO2 12/02/16 13:23 62 17 154/72 97 Room Air 12/02/16 13:16 58 12/02/16 13:10 36.7 74 22 126/63 99 Room Air 12/02/16 13:01 Room Air Review - Discharge Criteria Vital Signs Stable: Yes Alert/Oriented/Conversant: Yes Returned to Baseline Mental St: Yes Nausea Absent/Minimal: Yes Pain/Discomfort/Absent/Minimal: Yes Normal/Baseline Respirations: Yes Active Bleeding?: No Pt Received D/C Instructions: N/A Prescriptions Given: None Specific Proced. D/C Criteria Distal Pulses Present (Cardiac: Yes Groin site assessed-Card Cath: N/A Voided Prior To Discharge: N/A Discharged Patients Adult Escort/Transportation: N/A
[2016-12-02] MEDS ORDERED: ACETAMINOPHEN IV 100 ML IV PRN (15:30)
[2016-12-02] MEDS ORDERED: DEXTROSE 50% 50 ML SYR IV PRN (15:30)
[2016-12-02] MEDS ORDERED: DiphenhydrAMINE HCL 50 MG/ML VIAL IV PRN ×2 (15:30)
[2016-12-02] MEDS ORDERED: GLUCAGON FOR INJ 1 MG VIAL SQ PRN (15:30)
[2016-12-02] MEDS ORDERED: GLUCOSE 40% GEL 15 GM TUBE PO PRN (15:30)
[2016-12-02] MEDS ORDERED: GLUCOSE 10 TABS/TUBE PO PRN (15:30)
--- NOTE | 2016-12-02 15:38 | [facility] Post Operative Brief Note ---
Preliminary Procedure Note Procedure Date Dec 02, 2016. Pre-Procedure Diagnosis STEMI AUC Score 9 Post-Procedure Diagnosis Mild CAD, Normal LV Systolic Function, Normal Intracardiac Pressures Procedure(s) Performed Coronary Angiography, Left Heart Cath, LV Angiography Pan Helper Dr. Allen Test Consultant(s) Iris ZhengRTAlecia Estimated Blood Loss 15 ml Medication(s) Fentanyl, Heparin, Nicardipine, Versed, Lidocaine 1% Preliminary Findings Clinical indications: Acute chest pain in patient with CAD risk factors of diabetes mellitus, hypertension, dyslipidemia, family history of coronary artery disease, and cigarette smoking. Also history of peripheral arterial disease. Electrocardiogram with peak T-waves in the anterior leads associated with slight ST segment elevations. The patient reported a history of having had coronary artery stents. Catheterization site: 6 Ghanaian glide sheath right radial artery. Catheters: It was 1st attempted to perform left coronary angiography using a 6 Ghanaian EBU 3.75 guide catheter. This catheter would not cannulate the left main coronary artery. It was exchanged for a 6 Ghanaian ALR1-2 guide catheter. Catheter was able to perform nonselective angiography of both the left and right coronary arteries. It was exchanged for a 6 Ghanaian AL1 guide catheter. Selective left coronary angiography was then performed. Was then exchanged back for the ALR1-2 guide catheter. This catheter was then used to perform selective right coronary angiography. Left heart catheterization and left ventricular angiography were performed using a 6 Ghanaian pigtail catheter. Hemostasis: Terumo TR band. Complications: None. Findings: Fluoroscopy revealed very minor coronary calcifications. There was no visualization of any coronary artery stents on fluoroscopy or angiography. The coronary circulation was codominant. The left main coronary artery was a large caliber vessel with ostial and distal 20 percent stenoses. Left main gave rise to medium to large caliber left anterior descending and left circumflex coronary arteries. It also gave rise to a small to medium caliber ramus artery. The ramus had 0-10 percent stenoses in its proximal and mid segment. The proximal LAD had 0-10 percent stenosis. The proximal LAD gave rise to a very small caliber 1st diagonal artery. Early mid LAD gave rise to a very small caliber 2nd diagonal artery. The mid LAD gave rise to a long medium caliber 3rd diagonal artery. The 3rd diagonal had 0-10 percent stenoses in its proximal, mid, and distal segment. The mid LAD had a 20 percent stenosis. The distal LAD terminated at the apex of the heart as a very small caliber vessel. The proximal left circumflex had a 20 percent stenosis. The mid circumflex gave rise to a small caliber marginal artery. Mid and distal circumflex had 0- 10 percent luminal diameter narrowing. The distal circumflex then gave rise to a very small caliber posterolateral artery. This vessel had no obstructive disease. TERENCE 3 flow was present throughout all coronary arteries and branches. There was no evidence of any intracoronary thrombus or dissection. Left ventricular angiography performed from the 30 degree right anterior oblique projection using a hand injection of contrast dye revealed all left ventricular wall segments to contract normally. The calculated LV ejection fraction was 64 percent. No mitral regurgitation was noted. Conclusions: Mild coronary artery disease. Normal left ventricular systolic function and ejection fraction. Normal left ventricular end diastolic pressure. Plan: There is no indication for coronary revascularization procedure. Would obtain serial electrocardiograms and cardiac enzymes. Cannot exclude the patient had transient intracoronary obstruction secondary to a thrombus and/or spasm. Would continue on aspirin and clopidogrel. Continue maximum therapy for CAD risk factor modification. Evaluate for noncardiac etiology to his chest pain. Of note is the patient has a history of pancreatic disease. On physical exam prior to the catheterization procedure he had abdominal tenderness. Would check pancreatic enzymes and liver function test. Recommendations Medical therapy and/or Counseling Specimens None Fluids (cc crystalloids) 61 Drains none Anesthesia Intravenous Versed and fentanyl. Lidocaine 1 percent for local anesthesia. Procedural Complication(s) None Disposition PCU
[2016-12-02] MEDS: INSULIN ASPART 100 UNITS/ML 3 ML PEN SC SCH ×2 (16:15→20:49)
--- NOTE | 2016-12-02 16:43 | CARDIOLOGY CONSULTATION ---
DATE OF CONSULTATION: 12/02/2016 DATE OF CONSULTATION: 12/02/2016. REFERRING PHYSICIAN: Jack Barr M.D. ATTENDING PHYSICIAN: Jhonny Andrews M.D. CONSULTATION: Alejandro Allen M.D. HISTORY OF PRESENT ILLNESS: The patient is a 76-year-old -[place] male. He is a prisoner at [facility]. He woke at approximately 12:00 noon today with complaints of a retrosternal chest pressure radiating into his left arm and back. No associated dyspnea, nausea, or diaphoresis. Because of this discomfort, he was transferred to [facility] for evaluation. Electrocardiogram performed at [facility] revealed concave ST segment elevations in leads V1-V4. Peak and prominent T-waves in leads V2, V3, and V4. T-wave inversions in the inferior leads. Based on his symptoms and electrocardiogram, a heart alert was called. The patient reports a history of coronary artery disease. He reports having had 3 myocardial infarctions in the past. His medical record states he has undergone stent procedures. 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 Post-pancreatic surgery, he is insulin-dependent diabetic. He reports a history of peripheral vascular disease. He reports a history of a "clot" in one of his toes. He reports that in the past, he was treated with anticoagulation therapy. History of hypertension, diabetes mellitus, dyslipidemia. Past history also significant for BPH, gouty arthritis, gastritis, and paranoid schizophrenia,. The patient was evaluated by me in the Emergency Department. Following acquisition of informed consent, he was brought emergently to the cardiac catheterization lab for cardiac catheterization and possible coronary intervention. The procedure was performed via a 6-Malay sheath in the right radial artery. It revealed a codominant circulation. Fluoroscopy did not reveal any evidence of intracoronary stents. None were seen on angiography of the vessels. He had no significant obstructive coronary artery disease, 20% left main, LAD, and left circumflex stenoses. A 30% mid RCA stenosis, 20% PDA stenosis. Left ventricular angiography revealed normal LV wall motion. Calculated LV ejection fraction 64%. No complications with the procedure. At the completion of procedure, he had no complaints of chest pain or other anginal type symptoms. Of note, is that there was TERENCE 3 flow throughout all the coronary arteries. There is no evidence of any intracoronary thrombus or dissection. PAST MEDICAL HISTORY: 1. As above. 2. Admission to [facility] 05/15/2014 for diarrhea. PAST SURGICAL HISTORY: 1. Status post appendectomy. 2. Status post pancreatic surgery. 3. Status post suturing repair of a large scalp laceration. ALLERGIES AND ADVERSE DRUG REACTIONS: VITAMIN K. MEDICATIONS: At time of admission were reported to be allopurinol 200 mg daily, aspirin 81 mg daily, FiberCon 2 capsules b.i.d., clopidogrel 75 mg daily, docusate sodium 100 mg b.i.d., Trusopt ophthalmic solution 1 drop OP b.i.d., enalapril 10 mg daily, fluoxetine 30 mg daily, HCTZ 25 mg daily, Lantus insulin 35 units subcutaneous daily a.m., regular insulin sliding scale, isosorbide dinitrate 30 mg b.i.d., Xalatan eyedrops 1 drop OPR at bedtime, sublingual nitroglycerin p.r.n. chest pain, Risperdal 0.25 mg at bedtime, timolol 0.5% one drop OPB b.i.d., pravastatin 40 mg at bedtime, Artificial Tears p.r.n. SOCIAL HISTORY: The patient is a prisoner at [facility]. He smokes cigarettes for up to 68 years. He is still smoking cigarettes. He does not drink alcohol. FAMILY HISTORY: History of diabetes mellitus in his sisters. One of his sisters has a history of coronary artery disease. REVIEW OF SYSTEMS: 1. As above. 2. Chronic abdominal tenderness. 3. No bleeding complaints. 4. No focal neurologic symptoms. 5. Decreased strength of urine. 6. No fevers or chills. 7. No pulmonary complaints. PHYSICAL EXAMINATION: GENERAL: In the Emergency Department, the patient did not appear to be in any distress. VITAL SIGNS: In the Emergency Department revealed temperature 36.7, pulse 74, blood pressure 128/63, pulse oximetry room air 99%. NECK: No jugular venous distension. Carotids 2/2 bilaterally. Normal upstroke. No bruits heard in the Emergency Department. LUNGS: Normal respiratory effort. Clear. No rales or wheezes. HEART: Distant heart sounds. Regular rate and rhythm. A 1/6 systolic murmur second intercostal space. No diastolic murmur or rub. ABDOMEN: Soft. Tenderness on palpation in the epigastric region. No palpable masses or organomegaly. Normal bowel sounds. No bruits. EXTREMITIES: No pretibial edema. No cyanosis or clubbing. PULSES: Radial, posterior tibial, dorsalis pedis pulses palpable. NEUROLOGICAL: Alert and oriented x3. Motor grossly intact. PSYCHIATRIC: Affect normal. DATA: Electrocardiogram as reported above. The electrocardiogram was reviewed by me. Chest x-ray reviewed by me. Increased interstitial markings. LABORATORY DATA: WBC 6.28, hemoglobin 11.6, hematocrit 35.2, platelet count 153. Metabolic profile -- sodium 141, potassium 4.3, chloride 105, carbon dioxide 29, BUN 14, creatinine 1.40, random glucose 278. Initial CK 126 with MB of 1.3. Troponin I 0.020. ASSESSMENT: 1. Prolonged chest pain. By his description, it was consistent with myocardial ischemia. It radiated to his back and left arm. His electrocardiogram revealed ST segment elevations in leads V1-V4 with associated prominent T-waves consistent with acute myocardial injury. However, emergency cardiac catheterization reveals no significant obstructive coronary artery disease. There is TERENCE 3 flow in all coronary artery and branches. No evidence of any intracoronary thrombus or dissection. In the catheterization lab the patient's chest discomfort completely resolved. His LV angiogram shows normal LV wall motion and systolic function. 2. The patient's records and his history indicate that he has had coronary stents. None visualized on fluoroscopy and coronary angiography today. 3. No evidence of congestive heart failure on exam. 4. Blood pressure and heart rate well controlled. 5. History of peripheral vascular disease. 6. Diabetes mellitus. Elevated random glucose. 7. History of pancreatic disease. 8. Cardiac enzymes obtained in the Emergency Department are thus far negative for any evidence of myocardial injury. RECOMMENDATIONS: 1. No indication for coronary revascularization procedure. 2. Continue aspirin and clopidogrel. Continue maximum disease risk factor modification. 3. Serial cardiac enzymes and electrocardiograms. 4. Check pancreatic enzymes and liver function tests. 5. Echocardiogram to further assess left ventricular wall motion and to assess valvular function. Assess pericardium. Assess left ventricular wall thickness. Assess aortic root and ascending aorta. 6. Admit to telemetry unit. The patient was admitted by me to the [facility] hospitalist service.
--- NOTE | 2016-12-02 16:58 | DIAGNOSTIC IMAGING REPORT ---
CT OF THE ABDOMEN AND PELVIS WITHOUT CONTRAST CLINICAL HISTORY: Abdominal and chest pain. History of pancreatitis. COMPARISON STUDY: CT of the abdomen and pelvis May 14, 2014. TECHNIQUE: Axial images of the abdomen and pelvis were obtained without IV contrast. Images were reviewed in the axial, sagittal, and coronal planes. FINDINGS: Visualized portions of the lower lung demonstrate linear and groundglass opacity suggestive of atelectasis. No pneumatosis, free air or portal venous gas is present. Evaluation is suboptimal given the lack of IV and oral contrast. There is contrast within the collecting systems, ureters and bladder from recent cardiac catheterization. A few subcentimeter hypodense hepatic lesions are suboptimally assessed on this unenhanced exam but were present on exam of May 14, 2014. These are benign and likely reflect cysts. There are gallstones within the gallbladder. There is no CT evidence for acute cholecystitis. Unenhanced images of the spleen and adrenal glands are unremarkable. There is no hydronephrosis. There is scarring within the upper pole of the left kidney. Perigastric varices are noted. These were present on prior CT. Multifocal pancreatic parenchymal calcifications are present. The pancreas is suboptimally assessed on this unenhanced examination but appears similar to exam of May 14, 2014. There is no biliary ductal dilatation. There is no evidence for a bowel obstruction. The appendix is not visualized. No suspicious skeletal lesions are identified. There is a moderate amount of stool within the colon.. IMPRESSION: 1. Evidence of chronic pancreatitis. The pancreas is suboptimally assessed on this unenhanced exam but the appearance is similar to study of May 14, 2014. 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 2. Cholelithiasis. No evidence of acute cholecystitis. 3. No bowel obstruction. 4. Exam significant compromised given the lack of IV and oral contrast. Electronically signed by: Robert Atkins M.D. 12/02/2016 4:56 PM Dictated Date/Time: 12/02/2016 4:38 PM
--- NOTE | 2016-12-02 18:38 | History and Physical ---
History & Physical Date & Time of Service: Dec 02, 2016 at 18:28 Chief Complaint: Chest Pain Primary Care Physician: Son SHERIFF History of Present Illness Source: patient The patient is a 76-year-old male resident of resident of [facility], who presents to the emergency department with complaint of improving left-sided chest pain, that radiates to the left arm, that began about one hour prior to arrival. He has a history of a previous GA, and reports these symptoms were similar to that episode. He reports a stenting several years ago, and he smokes 1 pack a day for over 50 years. He reports a history of GI bleeding, and a right lower extremity DVT. Past Medical/Surgical History Medical Problems: (1) Acute renal failure Status: Resolved (2) CELINE (acute kidney injury) Status: Resolved (3) Colitis Status: Resolved (4) Dehydration Status: Resolved (5) Diabetes Status: Chronic (6) Diarrhea Status: Resolved (7) DVT (deep venous thrombosis) Status: Resolved (8) High cholesterol Status: Chronic (9) Hypertension Status: Chronic (10) Hypotension Status: Resolved (11) Pancreatitis Status: Chronic (12) Syncope Status: Resolved Surgical Problems: (1) H/O hernia repair Status: Chronic Family History Diabetes mellitus Social History Smoking Status: Current Every Day Smoker Smokeless Tobacco Use: No Alcohol Use: none Marital Status: single Occupational Status: other (Prisoner) Multi-Drug Resistant Organisms History of MDRO: No Allergies Coded Allergies: Vitamin K (Verified Allergy, Unknown, UNKNOWN, 12/02/16) Home Medications Scheduled Allopurinol (Zyloprim), 200 MG PO DAILY Aspirin (Aspirin Chewable), 81 MG PO DAILY Calcium Polycarbophil (Fibercon), 2 CAP PO BID Clopidogrel (Plavix), 75 MG PO DAILY Docusate Sodium (Docusate Sodium), 100 MG PO BID Dorzolamide Hcl (Trusopt Oph), 1 DROPS OP BID Enalapril (Vasotec), 10 MG PO DAILY Fluoxetine (Prozac), 30 MG PO DAILY Hydrochlorothiazide (Hctz), 25 MG PO DAILY Insulin Glargine (Lantus), 35 UNITS SC QAM Insulin Regular (Humulin-R), 1 DOSE SQ TID Isosorbide Dinitrate (Isordil Tab), 30 MG PO BID Latanoprost 0.005% Oph (Xalatan 0.005% Oph), 1 DROP OPR HS Nitroglycerin (Nitrostat), 0.4 MG UT PRN Pravastatin Sodium (Pravachol), 40 MG PO HS Risperidone (Risperdal), 0.25 MG PO HS Timolol Maleate 0.5% Oph (Timoptic 0.5% Oph), 1 DROP OPB BID Scheduled PRN Artificial Tear Solution (Artificial Tears), 1 DROP OPB TID PRN for DRY EYES Review of Systems The patient denies lower extremity swelling, sore throat, fevers, chills, sweats, weight change, fatigue, nausea, vomiting, abdominal pain, pelvic pain, blood in urine or stool, dysuria, urinary frequency or urgency, lightheadedness , dizziness, headache, memory loss, rash, abnormal bruising or bleeding, imbalance, generalized arthralgias or myalgias, back or neck pain, night sweats , or allergy symptoms. The review of systems is otherwise negative other than for that already noted above, and at least 10 systems have been reviewed. Physical Exam Vital Signs Date Time Temp Pulse Resp B/P (MAP) Pulse Ox O2 Delivery O2 Flow Rate FiO2 12/02/16 17:35 54 16 174/72 (106) 96 Room Air 12/02/16 17:05 56 18 169/78 (108) 94 Room Air 12/02/16 16:35 58 18 172/69 (103) 100 Room Air 12/02/16 16:05 55 16 168/69 (102) 98 Room Air 12/02/16 16:00 Room Air 12/02/16 15:50 55 16 175/73 (107) 96 Room Air 12/02/16 15:35 49 16 154/68 (96) 100 Room Air 12/02/16 15:20 55 16 147/63 (91) 98 Room Air 12/02/16 15:05 57 16 170/65 (100) 98 Room Air 12/02/16 14:40 36.6 60 16 134/60 97 Room Air 12/02/16 13:23 62 17 154/72 97 Room Air 12/02/16 13:16 58 12/02/16 13:10 36.7 74 22 126/63 99 Room Air 12/02/16 13:01 Room Air The patient is awake, well-developed and adequately nourished, alert and oriented 3, normocephalic and atraumatic, lying in bed and in no acute distress. HEENT--PERRL, EOMI, mucous membranes and oropharynx dry. Neck--supple, no JVD or bruits, thyroid normal, trachea midline, no adenopathy. Heart--normal S1 and S2, no extra beats, no murmurs, rubs or gallops. Lungs--clear bilaterally with good air movement, no respiratory distress, no accessory muscle use. Abdomen--normal bowel sounds and soft, tender to light touch, nondistended, no hernias or masses, no organomegaly. Extremities--no cyanosis, clubbing or edema. There are good distal pulses b/l. Dermatologic--normal skin turgor, normal color, warm and dry, no abnormal lymph nodes, no rash. Neurologic--cranial nerves II through XII grossly intact, motor and sensory examination normal. Rheumatologic--tender to palpation over chest. Psychiatric--normal affect. Diagnostics Laboratory Results Results Past 24 Hours Test 12/02/16 13:06 12/02/16 13:24 12/02/16 14:03 Range/Units White Blood Count 6.28 4.8-10.8 K/uL Red Blood Count 3.73 4.7-6.1 M/uL Hemoglobin 11.6 14.0-18.0 g/dL Hematocrit 35.2 42-52 % Mean Corpuscular Volume 94.4 80-100 fL Mean Corpuscular Hemoglobin 31.1 25-34 pg Mean Corpuscular Hemoglobin Concent 33.0 32-36 g/dl Platelet Count 153 130-400 K/uL Mean Platelet Volume 10.3 7.4-10.4 fL Neutrophils (%) (Auto) 49.9 % Lymphocytes (%) (Auto) 35.2 % Monocytes (%) (Auto) 7.2 % Eosinophils (%) (Auto) 7.0 % Basophils (%) (Auto) 0.5 % Neutrophils # (Auto) 3.14 1.4-6.5 K/uL Lymphocytes # (Auto) 2.21 1.2-3.4 K/uL Monocytes # (Auto) 0.45 0.11-0.59 K/uL Eosinophils # (Auto) 0.44 0-0.5 K/uL Basophils # (Auto) 0.03 0-0.2 K/uL RDW Standard Deviation 48.9 36.4-46.3 fL RDW Coefficient of Variation 14.3 11.5-14.5 % Immature Granulocyte % (Auto) 0.2 % Immature Granulocyte # (Auto) 0.01 0.00-0.02 K/uL Sodium Level 141 136-145 mmol/L Potassium Level 4.3 3.5-5.1 mmol/L Chloride Level 105 98-107 mmol/L Carbon Dioxide Level 29 21-32 mmol/L Anion Gap 7.0 20.0 16-25 mmol/L Blood Urea Nitrogen 14 7-18 mg/dl Creatinine 1.40 0.60-1.40 mg/dl Est Creatinine Clear Calc Drug Dose 44.2 ml/min Estimated GFR () 56.6 Estimated GFR (Non- 48.8 BUN/Creatinine Ratio 10.0 10-20 Random Glucose 278 70-99 mg/dl Calcium Level 9.1 8.5-10.1 mg/dl Total Creatine Kinase 126 39-308 U/L Creatine Kinase MB 1.3 0.5-3.6 ng/ml Creatine Kinase MB Ratio 1.0 0-3.0 Troponin I 0.020 0-0.045 ng/ml Bedside Hemoglobin 11.9 14.0-18.0 g/dl Bedside Hematocrit 35 42-52 % Bedside Sodium 141 135-144 mEq/L Bedside Potassium 4.4 3.3-5.0 mEq/L Bedside Chloride 99 101-112 mEq/L Bedside Total CO2 27 24-31 mEq/l Bedside Blood Urea Nitrogen 15 7-18 mg/dl Bedside Creatinine 1.2 0.6-1.3 mg/dl Bedside Glucose (other) 282 70-99 mg/dl Bedside Ionized Calcium (Marleny) 1.30 1.12-1.32 mmol/l Kaolin Activated Coagulation Time 230 94-140 SECONDS Microbiology Results 12/02/16 MRSA DNA Surveillance Screen, Received Pending Diagnostic Radiology Patient Name: WILLIAN [id number] Unit Number: [id number] Dictated: 12/02/161321 Transcribed: 12/02/161321 JA Printed Date/Time: [~ rep prt dt]/[~ rep prt tm] [~ rep ct labl] - [~ rep ct ivnm] [facility] Radiology Department [place], [place] [id number] Dictated: 12/02/16 1322 Transcribed: 12/02/16 1322 JA Printed Date/Time: [~ rep prt dt]/[~ rep prt tm] [~ rep ct labl] - [~ rep ct ivnm] CHEST ONE VIEW PORTABLE CLINICAL HISTORY: Chest pain. COMPARISON STUDY: Chest radiograph May 14, 2014. FINDINGS: Pacer pads overlie the chest. There is no pneumothorax or pleural effusion. Mild cardiomegaly is unchanged. There is pulmonary vascular congestion without overt pulmonary edema. No consolidation is identified. IMPRESSION: 1. Pulmonary vascular congestion. 2. Mild cardiomegaly. Electronically signed by: Robert Atkins M.D. 12/02/2016 1:24 PM Dictated Date/Time: 12/02/2016 1:22 PM The status of this report is Signed. Draft = Not yet reviewed or approved by Radiologist. Signed = Reviewed and approved by Radiologist. <AttendingPhy></AttendingPhy> <FamilyPhy>Son SHERIFF</FamilyPhy> <PrimaryPhy>SCISon</PrimaryPhy> <UnitNumber>[id number]</UnitNumber> <VisitNumber> [id number]</VisitNumber> <PatientName>WILLIAN LAROSE [id number]</PatientName> < DateOfBirth>1940</DateOfBirth> <Location>C.EDB</Location> <ServiceDate>04/10</ServiceDate> <MNE>ESINDI</MNE> <OrderingPhy>Jack Barr M.D.</ OrderingPhy> <OrderingPhyMNE>f rep ord dr francois</OrderingPhyMNE> <DictatingPhyMNE> f rep dict dr francois</DictatingPhyMNE> <CCListMNE>f rep ct mne</CCListMNE> < AdmittingPhyMNE>f pt admit dr francois</AdmittingPhyMNE> <AttendingPhyMNE>f pt attend dr francois</AttendingPhyMNE> <ConsultingPhyMNE>f pt consult dr francois</ConsultingPhyMNE> <FamilyPhyMNE>f pt fam dr francois</FamilyPhyMNE> <OtherPhyMNE>f pt other dr francois</OtherPhyMNE> < PrimaryPhyMNE>f pt prim care dr francois</PrimaryPhyMNE> <ReferringPhyMNE>f pt referring dr francois</ReferringPhyMNE> Patient Name: WILLIAN LAROSE [id number] Unit Number: [id number] Dictated: 12/02/161637 Transcribed: 12/02/161637 JA Printed Date/Time: [~ rep prt dt]/[~ rep prt tm] [~ rep ct labl] - [~ rep ct ivnm] [facility] Radiology Department [place], [place] [id number] Dictated: 12/02/161637 Transcribed: 12/02/161637 JA Printed Date/Time: [~ rep prt dt]/[~ rep prt tm] [~ rep ct labl] - [~ rep ct ivnm] [~ rep ct add3]] CT OF THE ABDOMEN AND PELVIS WITHOUT CONTRAST CLINICAL HISTORY: Abdominal and chest pain. History of pancreatitis. COMPARISON STUDY: CT of the abdomen and pelvis May 14, 2014. TECHNIQUE: Axial images of the abdomen and pelvis were obtained without IV contrast. Images were reviewed in the axial, sagittal, and coronal planes. FINDINGS: Visualized portions of the lower lung demonstrate linear and groundglass opacity suggestive of atelectasis. No pneumatosis, free air or portal venous gas is present. Evaluation is suboptimal given the lack of IV and oral contrast. There is contrast within the collecting systems, ureters and bladder from recent cardiac catheterization. A few subcentimeter hypodense hepatic lesions are suboptimally assessed on this unenhanced exam but were present on exam of May 14, 2014. These are benign and likely reflect cysts. There are gallstones within the gallbladder. There is no CT evidence for acute cholecystitis. Unenhanced images of the spleen and adrenal glands are unremarkable. There is no hydronephrosis. There is scarring within the upper pole of the left kidney. Perigastric varices are noted. These were present on prior CT. Multifocal pancreatic parenchymal calcifications are present. The pancreas is suboptimally assessed on this unenhanced examination but appears similar to exam of May 14, 2014. There is no biliary ductal dilatation. There is no evidence for a bowel obstruction. The appendix is not visualized. No suspicious skeletal lesions are identified. There is a moderate amount of stool within the colon.. IMPRESSION: 1. Evidence of chronic pancreatitis. The pancreas is suboptimally assessed on this unenhanced exam but the appearance is similar to study of May 14, 2014. 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 2. Cholelithiasis. No evidence of acute cholecystitis. 3. No bowel obstruction. 4. Exam significant compromised given the lack of IV and oral contrast. Electronically signed by: Robert Atkins M.D. 12/02/2016 4:56 PM Dictated Date/Time: 12/02/2016 4:38 PM The status of this report is Signed. Draft = Not yet reviewed or approved by Radiologist. Signed = Reviewed and approved by Radiologist. <AttendingPhy>Alejandro Allen M.D.</AttendingPhy> <FamilyPhy>Son SHERIFF</FamilyPhy > <PrimaryPhy>Son SHERIFF</PrimaryPhy> <UnitNumber>[id number]</UnitNumber> < VisitNumber>[id number]</VisitNumber> <PatientName>WILLIAN LAROSE [id number]</ PatientName> <DateOfBirth>1940</DateOfBirth> <Location>C.2T</Location> < ServiceDate>12/02/16</ServiceDate> <MNE>ESINDI</MNE> <OrderingPhy>Jhonny Andrews M.D.</OrderingPhy> <OrderingPhyMNE>f rep ord dr francois</OrderingPhyMNE> < DictatingPhyMNE>f rep dict dr francois</DictatingPhyMNE> <CCListMNE>f rep ct josee</ CCListMNE> <AdmittingPhyMNE>f pt admit dr francois</AdmittingPhyMNE> <AttendingPhyMNE >f pt attend dr francois</AttendingPhyMNE> <ConsultingPhyMNE>f pt consult dr francois</ConsultingPhyMNE> <FamilyPhyMNE>f pt fam dr francois</FamilyPhyMNE> <OtherPhyMNE>f pt other dr francois</OtherPhyMNE> < PrimaryPhyMNE>f pt prim care dr francois</PrimaryPhyMNE> <ReferringPhyMNE>f pt referring dr francois</ReferringPhyMNE> EKG EKG shows sinus bradycardia with sinus arrhythmia at 56 beats minute, with ST elevations across precordial chest leads suggestive of acute GA. Impression Assessment and Plan Precordial chest pain with abnormal EKG--patient was taken emergently to the cardiac catheterization laboratory by Dr. Allen, with no interventions needed, and then was admitted to the telemetry in for follow up. Medications will be continued per Dr. Allen. Diabetes mellitus--continue Lantus 35 units subcutaneous every morning, hold regular insulin, and place on Accu-Cheks before meals and at bedtime with NovoLog coverage. Hypercholesterolemia--continue pravastatin 40 mg by mouth at bedtime. Depression/insomnia--continue fluoxetine 30 mg by mouth daily and Risperdal 0.25 mg by mouth at bedtime. Gout--continue allopurinol 200 mg by mouth daily. Glaucoma--continue Trusopt, Xalatan and Timoptic. Level of Care Telemetry Advanced Directives Existing Advance Directive: No Existing Living Will: No Existing Power of Last Repairer Helper: No Resuscitation Status FULL RESUSCITATION VTE Prophylaxis VTE Risk Assessment Done? Y/N: Yes Risk Level: Moderate Given or contraindicated: SCD's
[2016-12-02] MEDS: CALCIUM POLYCARBOPHIL 1 TAB PO SCH (20:59)
[2016-12-02] MEDS: LATANOPROST 0.005% OP SOLN 2.5 ML BTL OPR SCH (20:59)
[2016-12-02] MEDS: DOCUSATE SODIUM 100 MG CAP PO SCH (20:59)
[2016-12-02] MEDS: DORZOLAMIDE HCL 2% OPH SOLN 10 ML BTL OP SCH (20:59)
[2016-12-02] MEDS: RISPERIDONE 0.5 MG TAB PO SCH (20:59)
[2016-12-02] MEDS: PRAVASTATIN SOD 40 MG TAB PO SCH (20:59)
[2016-12-02] MEDS ORDERED: INSULIN GLARGINE SOLOSTAR 100 UNITS/ML 3 ML PEN SC SCH (21:00)
[2016-12-02] MEDS: TIMOLOL MALEATE 0.5% OP SOLN 5 ML BTL OPB SCH (21:00)
[2016-12-03] VITALS (7 sets, daily range): BP systolic 117–155; BP diastolic 61–73; PULSE 61–84; TEMP 36.6–37.5; O2SAT 95–99
[2016-12-03] MEDS: SODIUM CHLORIDE 0.9% 1000ML 1,000 ML IV SCH (03:54)
[2016-12-03 06:13] LABS: BASO % 0.8 %; BASO ABS # 0.06 K/uL (0-0.2); COMPLETE YES; EOS % 6.9 %; HEMATOCRIT 33.6 % (42-52); IG% 0.1 %; LYMPH ABS # 2.72 K/uL (1.2-3.4); MEAN CELL VOLUME 92.8 fL (80-100); MEAN CORPUSCULAR HEMOGLOBIN 30.7 pg (25-34); MEAN PLATELET VOLUME 10.5 fL (7.4-10.4); MONO % 10.5 %; NEUT % 47.7 %; PLATELET COUNT 174 K/uL (130-400); RED BLOOD COUNT 3.62 M/uL (4.7-6.1)
[2016-12-03 06:25] LABS: PARTIAL THROMBOPLASTIN RATIO 1.1; PROTHROMBIN TIME (PATIENT) 10.7 SECONDS (9.0-12.0)
[2016-12-03] MEDS: INSULIN ASPART 100 UNITS/ML 3 ML PEN SC SCH ×4 (07:00→20:40)
[2016-12-03 07:03] LABS: BUN/CREATININE RATIO 18.4 (10-20); CALCIUM 8.2 mg/dl (8.5-10.1); CREATININE 0.81 mg/dl (0.60-1.40); POTASSIUM 3.3 mmol/L (3.5-5.1)
[2016-12-03] MEDS ORDERED: POTASSIUM CHLORIDE 10 MEQ TABCR PO ONE (08:15)
[2016-12-03] MEDS: ENALAPRIL MALEATE 10 MG TAB PO SCH (09:12)
[2016-12-03] MEDS: TIMOLOL MALEATE 0.5% OP SOLN 5 ML BTL OPB SCH ×2 (09:12→20:31)
[2016-12-03] MEDS: DORZOLAMIDE HCL 2% OPH SOLN 10 ML BTL OP SCH ×2 (09:12→20:31)
[2016-12-03] MEDS: CLOPIDOGREL BISULFATE 75 MG TAB PO SCH (09:13)
[2016-12-03] MEDS: FLUOXETINE HCL 10 MG CAP PO SCH (09:13)
[2016-12-03] MEDS: ISOSORBIDE DINITRATE 10 MG TAB PO SCH ×2 (09:13→12:02)
[2016-12-03] MEDS: DOCUSATE SODIUM 100 MG CAP PO SCH ×2 (09:13→20:32)
[2016-12-03] MEDS: HYDROCHLOROTHIAZIDE 25 MG TAB PO SCH (09:14)
[2016-12-03] MEDS: ALLOPURINOL 100 MG TAB PO SCH (09:14)
[2016-12-03] MEDS: CALCIUM POLYCARBOPHIL 1 TAB PO SCH ×2 (09:14→20:33)
[2016-12-03] MEDS: ASPIRIN 81 MG ECTAB PO SCH (09:14)
[2016-12-03] MEDS ORDERED: PANCREAZE (LIPASE 10,500U) CAP PO PRN (09:30)
--- NOTE | 2016-12-03 10:12 | DIAGNOSTIC IMAGING REPORT ---
LEFT SHOULDER MIN 2 VIEWS ROUTINE CLINICAL HISTORY: Left shoulder pain COMPARISON: Chest x-ray dated 12/02/2016 DISCUSSION: No acute fractures or dislocations are visualized. There are no visible particular calcifications. Degenerative changes are present within the AC joint. IMPRESSION: 1. No acute fractures identified 2. Degenerative changes within the AC joint. Electronically signed by: Real Ingram M.D. 12/03/2016 10:10 AM Dictated Date/Time: 12/03/2016 10:09 AM
--- NOTE | 2016-12-03 10:14 | DIAGNOSTIC IMAGING REPORT ---
CERVICAL SPINE SERIES 7 VIEWS CLINICAL HISTORY: Left arm radiculopathy. COMPARISON STUDY: No previous studies for comparison. FINDINGS: There are mild multilevel degenerative changes. No fractures, subluxations, or destructive lesions are visualized. IMPRESSION: Mild degenerative change. No fractures subluxations or destructive lesions are visualized Electronically signed by: Real Ingram M.D. 12/03/2016 10:13 AM Dictated Date/Time: 12/03/2016 10:12 AM
[2016-12-03] MEDS: PANCREAZE (LIPASE 10,500U) CAP PO SCH ×2 (11:56→16:44)
[2016-12-03] MEDS: NAPROXEN 250 MG TAB PO SCH ×2 (11:57→20:35)
--- NOTE | 2016-12-03 14:59 | PROGRESS NOTE ---
DATE: 12/03/2016 SUBJECTIVE: The patient was seen by me this afternoon . Since undergoing cardiac catheterization procedure yesterday, he has had no complaints of chest pain. No back or arm discomfort. These were symptoms on presentation. He denies any orthopnea or PND. No palpitations, lightheadedness, syncope, or extremity pain. No pain in his right radial catheterization site. No right hand pain. No neurologic symptoms. No bleeding complaints. He offers no complaints today. CURRENT MEDICATIONS: Lantus insulin 28 units at bedtime, lipase/protease/amylase 2 capsules p.o. t.i.d., naproxen 500 mg b.i.d., allopurinol 200 mg daily, aspirin 81 mg daily, clopidogrel 75 mg daily, enalapril 10 mg daily, fluoxetine 30 mg daily, HCTZ 25 mg daily, isosorbide dinitrate 30 mg b.i.d., FiberCon 1 tab b.i.d., Colace 100 mg b.i.d., Trusopt ophthalmic solution 1 drop b.i.d. OP, Xalatan eyedrops 1 drop HI at bedtime, pravastatin 40 mg at bedtime, risperidone 0.25 mg at bedtime, timolol 1 drop b.i.d. OPB, and several p.r.n. medications including sliding-scale insulin. ALLERGIES AND ADVERSE DRUG REACTIONS: VITAMIN K. Monitor reveals sinus rhythm. PHYSICAL EXAMINATION: GENERAL APPEARANCE: Shows him to be lying in bed. No distress. VITAL SIGNS: Late this morning with oral temperature 36.6, pulse 74, blood pressure 155/73, pulse oximetry room air 96%. NECK: No jugular venous distention. LUNGS: Clear. Normal respiratory effort. No rales or wheezes. HEART: Distant heart sounds. Regular rate and rhythm. S1, S2 normal. No S3 or S4. No murmur or rub. ABDOMEN: Soft. Nontender. No palpable masses or organomegaly. No bruits. EXTREMITIES: Right radial catheterization site without bleeding or hematoma. Nontender. No evidence of arterial insufficiency in the right hand. No cyanosis or clubbing. No pretibial edema. Right radial pulse strongly palpable. NEUROLOGIC: Alert and oriented x3. Motor grossly intact. PSYCHIATRIC: Affect normal. LABORATORY DATA: Today was sodium 145, potassium 3.3, chloride 112, carbon dioxide 25, BUN 15, creatinine 0.81, random glucose 36. Troponin I today 0.163. Yesterday was 0.020. Electrocardiogram was ordered for today. This is still pending. ASSESSMENT: 1. Status post prolonged episode of chest discomfort yesterday. Radiation to back and arm. These symptoms were consistent with an acute myocardial infarction. His electrocardiogram yesterday revealed anterior concave elevations and prominent T waves. Electrocardiogram was consistent with acute injury. However, subsequent cardiac catheterization revealed no acute process in any of the coronary arteries. This included the LAD. There was TERENCE 3 flow in all the coronary arteries and their branches. There was no significant underlying obstructive disease. There was at most mild disease in the coronary arteries. LV angiography showed normal LV systolic function and wall motion. The calculated left ventricular ejection fraction was 64%. 2. No anginal or myocardial infarction type symptoms since admission. 3. No complications at the right radial catheterization site. 4. Elevated creatinine at the time of arrival. With intravenous fluids overnight his creatinine has decreased. It is normal today. 5. No evidence of heart failure or significant arrhythmia. 6. An electrocardiogram was ordered for today. It has not as yet been performed. RECOMMENDATIONS: 1. Continue current medications. 2. No further cardiac workup or evaluation at this time. He already underwent cardiac catheterization yesterday. 3. Await today's electrocardiogram. Although this will not alter current plan it will document whether the ST segment changes seen on yesterday's electrocardiogram were acute or if they are chronic. 4. Increase activity. [facility]
[2016-12-03] MEDS: LATANOPROST 0.005% OP SOLN 2.5 ML BTL OPR SCH (20:32)
[2016-12-03] MEDS: PRAVASTATIN SOD 40 MG TAB PO SCH (20:36)
[2016-12-03] MEDS: RISPERIDONE 0.5 MG TAB PO SCH (20:36)
--- NOTE | 2016-12-03 20:44 | Progress Note ---
Subjective Date of Service: Dec 03, 2016. Subjective Pt evaluation today including: conversation w/ patient, physical exam, chart review, lab review, review of studies, review of inpatient medication list Pain: left arm, near the biceps; ?left lower neck/left shoulder PO Intake: normal Voiding: no voiding problems tele stable overnight he continues with pain in the left upper arm - anterior aspect, over the biceps denies pain going into the forearm or hand denies paresthesias denies that pain is worsened with neck movements no chest pain Problem List Medical Problems: (1) Abnormal EKG Status: Acute (2) Hypoglycemia Status: Acute (3) ST elevation myocardial infarction (STEMI) of anterior wall Status: Acute Review of Systems Constitutional: No fever Respiratory: No shortness of breath Cardiac: No chest pain, No orthopnea Abdomen: + pain (occasional (chronic)), + diarrhea (after eating food - chronic ) Objective Vital Signs Date Time Temp Pulse Resp B/P (MAP) Pulse Ox O2 Delivery O2 Flow Rate FiO2 12/03/16 19:50 36.7 73 18 133/65 (87) 99 12/03/16 16:00 Room Air 12/03/16 15:36 37.1 84 20 117/66 (83) 97 Room Air 12/03/16 12:00 Room Air 12/03/16 11:37 36.6 74 16 155/73 (100) 96 Room Air 12/03/16 08:00 Room Air 12/03/16 07:36 36.6 62 16 150/61 (90) 95 Room Air 12/03/16 04:37 37.5 73 22 123/66 (85) 97 Nasal Cannula 5.0 12/03/16 04:35 36.8 61 16 145/70 (95) 97 Room Air 12/03/16 04:00 Room Air 12/02/16 23:59 Room Air 12/02/16 23:48 36.7 65 16 162/68 (99) 99 Room Air Physical Exam General Appearance: no apparent distress ENT: pharynx normal Neck: no JVD Respiratory/Chest: lungs clear, no respiratory distress, no accessory muscle use Cardiovascular: regular rate, rhythm, no gallop, no murmur Abdomen: normal bowel sounds, non tender, soft, no organomegaly Extremities: no pedal edema Neurologic/Psychiatric: no motor/sensory deficits, alert Comments: musculo - left biceps - tender along bicipital groove; no pain over left subacromial bursal area; no pain with abduction/adduction of left shoulder; mild reproducible pain with flexion of the arm/elbow neck - no tenderness with passive ROM of the neck; minimal paraspinal tenderness left lower neck area Laboratory Results Last 24 Hours Test 12/03/16 05:40 12/03/16 06:29 12/03/16 06:32 12/03/16 07:11 White Blood Count 8.00 K/uL Red Blood Count 3.62 M/uL Hemoglobin 11.1 g/dL Hematocrit 33.6 % Mean Corpuscular Volume 92.8 fL Mean Corpuscular Hemoglobin 30.7 pg Mean Corpuscular Hemoglobin Concent 33.0 g/dl Platelet Count 174 K/uL Mean Platelet Volume 10.5 fL Neutrophils (%) (Auto) 47.7 % Lymphocytes (%) (Auto) 34.0 % Monocytes (%) (Auto) 10.5 % Eosinophils (%) (Auto) 6.9 % Basophils (%) (Auto) 0.8 % Neutrophils # (Auto) 3.82 K/uL Lymphocytes # (Auto) 2.72 K/uL Monocytes # (Auto) 0.84 K/uL Eosinophils # (Auto) 0.55 K/uL Basophils # (Auto) 0.06 K/uL RDW Standard Deviation 47.9 fL RDW Coefficient of Variation 14.1 % Immature Granulocyte % (Auto) 0.1 % Immature Granulocyte # (Auto) 0.01 K/uL Prothrombin Time 10.7 SECONDS Prothromb Time International Ratio 1.0 Activated Partial Thromboplast Time 27.6 SECONDS Partial Thromboplastin Ratio 1.1 Sodium Level 145 mmol/L Potassium Level 3.3 mmol/L Chloride Level 112 mmol/L Carbon Dioxide Level 25 mmol/L Anion Gap 8.0 mmol/L Blood Urea Nitrogen 15 mg/dl Creatinine 0.81 mg/dl Est Creatinine Clear Calc Drug Dose 81.4 ml/min Estimated GFR () 100.8 Estimated GFR (Non- 86.9 BUN/Creatinine Ratio 18.4 Random Glucose 36 mg/dl Calcium Level 8.2 mg/dl Magnesium Level 2.0 mg/dl Total Bilirubin 0.6 mg/dl Direct Bilirubin 0.1 mg/dl Aspartate Amino Transf (AST/SGOT) 13 U/L Alanine Aminotransferase (ALT/SGPT) 16 U/L Alkaline Phosphatase 83 U/L Total Protein 6.5 gm/dl Albumin 3.0 gm/dl Bedside Glucose 38 mg/dl 41 mg/dl 44 mg/dl Test 12/03/16 07:30 12/03/16 10:29 12/03/16 11:09 12/03/16 16:26 Bedside Glucose 86 mg/dl 323 mg/dl 279 mg/dl Troponin I 0.163 ng/ml Assessment and Plan 76yo male - 1. chest pain - resolved. He is s/p cardiac cath yesterday by Dr. Allen which showed minimal plaque/ nonobstructive CAD (see his report). Cont aggressive secondary prevention - statin, asa, plavix, etc. I am unclear why he is not on a beta tico. EKG today unchanged from yesterday. No signs/symptoms of pericarditis or other etiology. Could he have had coronary vasospasm? other? 2. 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 Obtain x-rays of left shoulder and c-spine. Start naprosyn 500mg BID for a few days but would not do long-term due to asa/ plavix use. 3. chronic pancreatitis - has chronic diarrhea from such. Start creon 2 caps w/ meals and 1 with snacks. He was not on this at [facility]; when he returns recommend ongoing use of this. 4. acute kidney injury - resolved. Unclear why he had such. Ok to d/c fluids today. 5. h/o DVT - noted. 6. tobacco dependence - career development counselor to quit. 7. hypokalemia - replace, repeat BMP in am. 8. minimal troponin elevation - no evidence of ACS. Likely 2nd to myocardial demand ischemia. 9. labile and uncontrolled diabetes, suspect type 1 due to chronic pancreatitis - significant hypoglycemia overnight. Reduce lantus from 35 units to 28 units. Novolog - correction 40 with carb ratio 1:12. 10. HTN - controlled; cont outpatient meds. 11. DVT proph - heparin TID. anticipate d/c back to [facility] on Sunday if glycemic control is satisfactory Discharge planning: other ([facility] )
[2016-12-03] MEDS ORDERED: INSULIN GLARGINE SOLOSTAR 100 UNITS/ML 3 ML PEN SC SCH (21:00)
[2016-12-03] MEDS: HEPARIN SOD 5000 UNIT/0.5 ML CARP SQ SCH (22:00)
[2016-12-04 03:58] VITALS: BP 118/59; PULSE 63; TEMP 36.9; O2SAT 98
[2016-12-04] MEDS: HEPARIN SOD 5000 UNIT/0.5 ML CARP SQ SCH (06:35)
[2016-12-04 07:23] VITALS: BP 136/55; PULSE 68; TEMP 36.6; O2SAT 98
[2016-12-04 08:26] LABS: CREATININE 1.2 mg/dl (0.60-1.40); POTASSIUM 4.3 mmol/L (3.5-5.1)
[2016-12-04 09:02] LABS: ESTIMATED AVERAGE GLUCOSE 192 mg/dl; HA1C FLAG Normal (Normal)
[2016-12-04 09:12] LABS: CALCIUM 8.9 mg/dl (8.5-10.1)
[2016-12-04] MEDS: PANCREAZE (LIPASE 10,500U) CAP PO SCH ×2 (09:17→12:27)
[2016-12-04] MEDS: CALCIUM POLYCARBOPHIL 1 TAB PO SCH (09:17)
[2016-12-04] MEDS: CLOPIDOGREL BISULFATE 75 MG TAB PO SCH (09:18)
[2016-12-04] MEDS: DOCUSATE SODIUM 100 MG CAP PO SCH (09:18)
[2016-12-04] MEDS: FLUOXETINE HCL 10 MG CAP PO SCH (09:18)
[2016-12-04] MEDS: ASPIRIN 81 MG ECTAB PO SCH (09:18)
[2016-12-04] MEDS: ALLOPURINOL 100 MG TAB PO SCH (09:18)
[2016-12-04] MEDS: ENALAPRIL MALEATE 10 MG TAB PO SCH (09:18)
[2016-12-04] MEDS: ISOSORBIDE DINITRATE 10 MG TAB PO SCH ×2 (09:19→12:26)
[2016-12-04] MEDS: NAPROXEN 250 MG TAB PO SCH (09:19)
[2016-12-04] MEDS: DORZOLAMIDE HCL 2% OPH SOLN 10 ML BTL OP SCH (09:20)
[2016-12-04] MEDS: HYDROCHLOROTHIAZIDE 25 MG TAB PO SCH (09:20)
[2016-12-04] MEDS: TIMOLOL MALEATE 0.5% OP SOLN 5 ML BTL OPB SCH (09:20)
[2016-12-04] MEDS: INSULIN ASPART 100 UNITS/ML 3 ML PEN SC SCH ×2 (09:26→12:25)
--- NOTE | 2016-12-04 10:19 | Discharge Instructions ---
Discharge Instructions Date of Service Dec 04, 2016. Admission Reason for Admission: Chest Pain Discharge Discharge Diagnosis / Problem: Chest Pain Discharge Goals Goal(s): Improve disease control Activity Recommendations Activity Limitations: resume your previous activity . Instructions / Follow-Up Instructions / Follow-Up Home Care: * Take your medications exactly as directed. Don't skip doses. * Remember that recovery after a heart attack takes time. Plan to rest for at lease 4-8 weeks while you recover. Then return to normal activity when your doctor says it's okay. * Ask your doctor about joining a heart rehabilitation program. * Tell your doctor if you are feeling depressed. Feelings of sadness are common after a heart attack, but it is important that you speak to someone if you are feeling overwhelmed by these feelings. * If you are having chest pain, call 911 for an ambulance. Do NOT drive yourself to the hospital. * Ask your family members to learn CPR. * Learn to take your own blood pressure and pulse. Keep a record of your results. Ask your doctor when you should seek emergency medical attention. He or she will tell you which blood pressure reading is dangerous. Lifestyle Changes: * Maintain a healthy weight. Get help to lose any extra pounds. * Cut back on salt. * Limit canned, dried, packaged, and fast foods. * Don't add salt to your food. * Season foods with herbs instead of salt when you cook. * Break the smoking habit. Enroll in a stop-smoking program to improve your chances of success. * Limit fatty foods. * Check your lipid levels regularly. (Your doctor can show you how to do this.) * Build up your activity according to your doctor's recommendation. * Ask your doctor when it's okay to resume sexual activity. * Tell your doctor about any erectile dysfunction (ED) medication you are taking. Some ED medications are not safe if you take certain heart medications. * Try to manage stress. Follow Up: It is important for you to keep your follow up appointments with your medical provider. Current Hospital Diet Patient's current hospital diet: AHA Diet (Heart Healthy), Diabetes Type 2 Diet Discharge Diet Recommended Diet: Diabetes Type 2 Diet Procedures Procedures Performed: Cardiac Catheterization on admission - <20% stenosis in all vessels, no interventions performed Pending Studies Studies pending at discharge: no Laboratory Results Hemoglobin A1c Test 12/04/16 07:00 Range/Units Estimated Average Glucose 192 mg/dl Hemoglobin A1c 8.3 H 4.5-5.6 % Lipid Panel Test 12/04/16 07:00 Range/Units Triglycerides Level 179 H 0-150 mg/dl Cholesterol Level 108 0-200 mg/dl HDL Cholesterol 36 mg/dl Cholesterol/HDL Ratio 3.0 LDL Cholesterol, Calculated 36 mg/dl Medical Emergencies . Who to Call and When: Medical Emergencies: If at any time you feel your situation is an emergency, please call 911 immediately. Call 911 immediately or go to your nearest Emergency Room if you experience any of the following: Warning Signs and Symptoms of a Heart Attack * Chest pain that is not relieved by medication * Shortness of breath . Non-Emergent Contact Non-Emergency issues call your: Primary Care Provider . . "Provider Documentation" section prepared by Patricia Alvarez. . AMI Core Measures Reason no ASA as I/P: Treatment provided - N/A Reason no ASA at D/C: Treatment provided - N/A Reason no statin as I/P: Treatment provided - N/A Reason no statin at D/C: Treatment provided - N/A VTE Core Measure Inpt VTE Proph given/why not?: Unfractionated heparin SQ, SCD's
[2016-12-04] MEDS ORDERED: CRG3125 PO (10:23)
[2016-12-04] MEDS ORDERED: PANC6000 PO (10:23)
--- NOTE | 2016-12-04 10:24 | Discharge Summary ---
Discharge Summary Date of Service Dec 04, 2016. (Patricia Alvarez MD) Discharge Summary Admission Date: Dec 02, 2016 at 14:43 Discharge Date: Dec 04, 2016 Discharge Disposition: Home ([facility]) Principal Diagnosis: Chest pain Problems/Secondary Diagnoses: EKG changes Procedures: Cardiac cath 12/03/16: Findings: Fluoroscopy revealed very minor coronary calcifications. There was no visualization of any coronary artery stents on fluoroscopy or angiography. The coronary circulation was codominant. The left main coronary artery was a large caliber vessel with ostial and distal 20 percent stenoses. Left main gave rise to medium to large caliber left anterior descending and left circumflex coronary arteries. It also gave rise to a small to medium caliber ramus artery. Dominant: Co-dominant Left Main (% Stenosis): Ostial (20The), Distal (20) LAD (% Stenosis): Proximal (0-10), Mid (20) D1 (% Stenosis): Normal D2 (% Stenosis): Normal D3 (% Stenosis): Proximal (0-10), Mid (0-10), Distal (0-10) Circumflex (% Stenosis): Proximal (20), Mid (0-10), Distal (0-10) OM1 (% Stenosis): Normal L PL1 (% Stenosis): Normal RCA (% Stenosis): Mid (10-30), Distal (10-20) R PDA (% Stenosis): Ostial (20), Proximal (20) Plan: There is no indication for coronary revascularization procedure. Would obtain serial electrocardiograms and cardiac enzymes. Cannot exclude the patient had transient intracoronary obstruction secondary to a thrombus and/or spasm. Would continue on aspirin and clopidogrel. Continue maximum therapy for CAD risk factor modification. Evaluate for noncardiac etiology to his chest pain. Of note is the patient has a history of pancreatic disease. On physical exam prior to the catheterization procedure he had abdominal tenderness. Would check pancreatic enzymes and liver function test. IMAGING: CXR ON ADMISSION CHEST ONE VIEW PORTABLE CLINICAL HISTORY: Chest pain. COMPARISON STUDY: Chest radiograph May 14, 2014. FINDINGS: Pacer pads overlie the chest. There is no pneumothorax or pleural effusion. Mild cardiomegaly is unchanged. There is pulmonary vascular congestion without overt pulmonary edema. No consolidation is identified. IMPRESSION: 1. Pulmonary vascular congestion. 2. Mild cardiomegaly. CT ABD/PELVIS IMPRESSION: 1. Evidence of chronic pancreatitis. The pancreas is suboptimally assessed on this unenhanced exam but the appearance is similar to study of May 14, 2014. 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 2. Cholelithiasis. No evidence of acute cholecystitis. 3. No bowel obstruction. 4. Exam significant compromised given the lack of IV and oral contrast. L SHOULDER: IMPRESSION: 1. No acute fractures identified 2. Degenerative changes within the AC joint. C SPINE XRAY IMPRESSION: Mild degenerative change. No fractures subluxations or destructive lesions are visualized (Patricia Alvarez MD) Medication Reconciliation New Medications: Carvedilol (Carvedilol) 3.125 Mg Tab 1 TAB PO HS for 30 Days, #30 Pancrelipase (Lipase-Protease- (Creon) 1 Cap Cap 1 TAB PO DAILY for 30 Days, #30 Continued Medications: Allopurinol (Zyloprim) 100 Mg Tab 200 MG PO DAILY, TAB Artificial Tear Solution (Artificial Tears) 1 Emily Emily 1 DROP OPB TID PRN for DRY EYES Aspirin (Aspirin Chewable) 81 Mg Chew 81 MG PO DAILY Calcium Polycarbophil (Fibercon) 625 Mg Tab 2 CAP PO BID, CPLT Clopidogrel (Plavix) 75 Mg Tab 75 MG PO DAILY, TAB Docusate Sodium (Docusate Sodium) 100 Mg Cap 100 MG PO BID, CAP Dorzolamide Hcl (Trusopt Oph) 2 % Emily 1 DROPS OP BID, ML 3 Refills Enalapril (Vasotec) 10 Mg Tab 10 MG PO DAILY, TAB Fluoxetine (Prozac) 20 Mg Cap 30 MG PO DAILY, CAP Hydrochlorothiazide (Hctz) 25 Mg Tab 25 MG PO DAILY, TAB Insulin Glargine (Lantus) Vial 35 UNITS SC QAM, VIAL Insulin Regular (Humulin-R) Inj 1 DOSE SQ TID, VIAL SLIDING SCALE Isosorbide Dinitrate (Isordil Tab) 30 Mg Tab 30 MG PO BID, TAB Latanoprost 0.005% Oph (Xalatan 0.005% Oph) Soln 1 DROP OPR HS Nitroglycerin (Nitrostat) 0.4 Mg Sub 0.4 MG UT PRN, BTL Pravastatin Sodium (Pravachol) 40 Mg Tab 40 MG PO HS Risperidone (Risperdal) 0.5 Mg Tab 0.25 MG PO HS, TAB Timolol Maleate 0.5% Oph (Timoptic 0.5% Oph) Soln 1 DROP OPB BID Discharge Exam Review of Systems: Constitutional: No fever, No chills, No sweats, No weight loss, No weakness Eyes: No worsening of vision ENT: No hearing loss Respiratory: No cough, No sputum Cardiovascular: No chest pain Abdomen: No pain, No nausea, No vomiting Musculoskeletal: No joint pain, No muscle pain Genitourinary - Male: No hematuria, No dysuria, No urinary frequency, No urinary urgency Neurologic: No memory loss, No paralysis, No weakness Psychiatric: No depression symptoms Endocrine: No fatigue Hematologic / Lymphatic: No abnormal bleeding/bruising Integumentary: No rash Physical Exam: General Appearance: WD/WN, no apparent distress Eyes: normal inspection, PERRL ENT: hearing grossly normal Neck: supple, thyroid normal Respiratory/Chest: chest non-tender, lungs clear, normal breath sounds Cardiovascular: regular rate, rhythm, no edema Abdomen / GI: normal bowel sounds, non tender, soft Extremities: normal inspection, no pedal edema Neurologic/Psychiatric: no motor/sensory deficits, alert, normal mood/affect , oriented x 3 Skin: no rash Lymphatic: no adenopathy (Patricia Alvarez MD) Hospital Course HPI: The patient is a 76-year-old male resident of [facility], who presents to the emergency department with complaint of improving left-sided chest pain, that radiates to the left arm, that began about one hour prior to arrival. He has a history of a previous AL, and reports these symptoms were similar to that episode. He reports a stenting several years ago, and he smokes 1 pack a day for over 50 years. He reports a history of GI bleeding, and a right lower extremity DVT. HOSPITAL COURSE: Chest pain, with ST elevation on EKG, s/p catheterization The patient underwent cardiac cath, did not require any procedures (see above findings). We will continue aggressive secondary prevention regardless, with statin, aspirin, plavix, beta tico therapy. His EKG the next day was unchanged, and was somewhat similar to the EKG in 2014. Differential could also include coronary vasospasm. Troponins peaked at 0.079. Left arm pain / cervical spine DJD Xrays as above. We have discontinued Naproxen, do not recommend using this is coronary disease. Chronic pancreatitis As seen on CT scan Prescribed Creon, to be taken 2 caps with meals, 1 with snacks Hyperglycemia His BSGs were elevated durnig admission - ranging from 279 to 323 - Requires adjustment from PCP Was hypoglycemic overnight, so lantus was reduced from 35 to 28 units. Tobacco dependence Counselled pt to quit Hypertension Home meds continued VTE: Heparin q8h CODE STATUS: FULL CODE DISPO: Discharged back to [facility] Son Chin on 12/04/16 Total Time Spent: Greater than 30 minutes This includes examination of the patient, discharge planning, medication reconciliation, and communication with other providers. (Patricia Alvarez MD) Resident Physician Supervision Note: I interviewed and examined the patient. Discussed with Dr. Alvarez and agree with findings and plan as documented in the note. Any exceptions or clarifications are listed here: None Documented By: Juan Carlos Pabon feeling better wants to leave the hospital no new complaints ROS otherwise negative except for as above vitals noted nad breathing unlabored chest pain - most likely noncardiac, with slight troponin can't entirely exclude vasospasm but no dynamic EKG changes; med management CAD - mild at worst - again as above can't entirely exclude vasospasm - hence meds including coreg for alpha tico (follow HR and follow for orthostatic sx) abnormal EKG - oddly enough appears to be his baseline, given that it was NOT education courses sales representative of a STEMI, and he doesn't have high grade CAD - and did not change stable for discharge Total Time Spent: Less than 30 minutes (Juan Carlos Pabon, D.O.) Discharge Instructions Please refer to the electronic Patient Visit Report (Discharge Instructions) for additional information. (Patricia Alvarez MD) Additional Copies To Son SHERIFF Resident Tracking Resident Involvement: Resident Care Provided Care Provided: Adult Hospital Medicine (Patricia Alvarez MD)
[2016-12-04 11:17] LABS: ISTAT CARBON DIOXIDE 27 mEq/l (24-31); ISTAT CHLORIDE 101 mEq/L (101-112); ISTAT HEMATOCRIT 32 % (42-52); ISTAT HEMOGLOBIN 10.9 g/dl (14.0-18.0); ISTAT SODIUM 141 mEq/L (135-144)
[2016-12-04 11:18] VITALS: BP 145/71; PULSE 89; TEMP 36.7; O2SAT 100
[2016-12-04 12:11] VITALS: BP 145/71; PULSE 89; TEMP 36.7; O2SAT 100
== END 2016-12-04 13:45 | disposition home or self-care (01) | DRG 287 ==
LOC: EDBD 12:59 → C.EDB 13:01 → C.CATH 13:53 → C.2T 14:43
PROVIDERS: ADMIT Internal Medicine Cardiovascular Disease; ATTEND Family Medicine
PROC: 4A023N7 Measurement of Cardiac Sampling and Pressure, Left Heart, Percutaneous Approach (ICD-10-PCS; principal; 2016-12-02 13:30)
PROC: B2111ZZ Fluoroscopy of Multiple Coronary Arteries using Low Osmolar Contrast (ICD-10-PCS; principal; 2016-12-02 13:30)
PROC: B2151ZZ Fluoroscopy of Left Heart using Low Osmolar Contrast (ICD-10-PCS; principal; 2016-12-02 13:30)
DX: I24.8 Other forms of acute ischemic heart disease (principal); K86.1 Other chronic pancreatitis; N17.9 Acute kidney failure, unspecified; E10.65 Type 1 diabetes mellitus with hyperglycemia; Z86.718 Personal history of other venous thrombosis and embolism; E78.5 Hyperlipidemia, unspecified; F17.200 Nicotine dependence, unspecified, uncomplicated; I10 Essential (primary) hypertension; Z83.3 Family history of diabetes mellitus; F32.9 Major depressive disorder, single episode, unspecified; M1A.9XX0 Chronic gout, unspecified, without tophus (tophi); H40.9 Unspecified glaucoma; M47.892 Other spondylosis, cervical region; N40.0 Benign prostatic hyperplasia without lower urinary tract symptoms; M75.22 Bicipital tendinitis, left shoulder; E87.6 Hypokalemia; I73.9 Peripheral vascular disease, unspecified; I25.10 Atherosclerotic heart disease of native coronary artery without angina pectoris; I25.2 Old myocardial infarction

== ENCOUNTER 2017-04-14 23:59 | Emergency (ER) | payer OTHER ==
[~2017-04-14 23:59] MED LIST changes: -ACET325T96 PO; -CILO50TA9 PO; +CLOP1TAB15 PO; +CRG3125 PO; +DOCU100C31 PO; +DORZ2SOL17 OP; -LORA10CA2 PO; -LPR25 PO; +PANC6000 PO
[2017-04-15 00:02] VITALS: PULSE 0
--- NOTE | 2017-04-15 00:20 | EMERGENCY ROOM VISIT NOTE ---
History Report prepared by Ej: Cammie Chino Under the Supervision of: Dr. Santos Morfin D.O. First contact with patient: 00:02 Chief Complaint: CARDIAC ARREST Stated Complaint: CARDIAC ARREST History of Present Illness The patient is a 76 year old male who presents to the Emergency Room in cardiac arrest beginning just FINANCE MGR. Per EMS, the patient was in the [facility] when he began complaining of unspecified pain. The patient coded in front of nursing staff and was taken to the ED via ambulance. They report that they intubated, started CPR, and gave 5 of epinephrine. The patient was asytole on arrival. HPI limited secondary to unresponsiveness. Source of History: EMS History Limited By: intubation, other (unresponsiveness) Onset: just FINANCE MGR Position: other (cardiac arrest) Timing: constant Note: Pt asystole. Review of Systems See HPI for pertinent positives & negatives. ROS limited secondary to unresponsiveness. Past Medical & Surgical Medical Problems: (1) Acute renal failure (2) CELINE (acute kidney injury) (3) Chest pain (4) Colitis (5) Dehydration (6) Diabetes (7) Diarrhea (8) DVT (deep venous thrombosis) (9) High cholesterol (10) Hypertension (11) Hypotension (12) Pancreatitis (13) Syncope Surgical Problems: (1) H/O hernia repair Family History Diabetes mellitus Social History Smoking Status: Current Every Day Smoker Marital Status: single Housing Status: other Occupation Status: other Current/Historical Medications Scheduled Allopurinol (Zyloprim), 200 MG PO DAILY Aspirin (Aspirin Chewable), 81 MG PO DAILY Calcium Polycarbophil (Fibercon), 2 CAP PO BID Carvedilol (Carvedilol), 1 TAB PO HS Clopidogrel (Plavix), 75 MG PO DAILY Docusate Sodium (Docusate Sodium), 100 MG PO BID Dorzolamide Hcl (Trusopt Oph), 1 DROPS OP BID Enalapril (Vasotec), 10 MG PO DAILY Fluoxetine (Prozac), 30 MG PO DAILY Hydrochlorothiazide (Hctz), 25 MG PO DAILY Insulin Glargine (Lantus), 35 UNITS SC QAM Insulin Regular (Humulin-R), 1 DOSE SQ TID Isosorbide Dinitrate (Isordil Tab), 30 MG PO BID Latanoprost 0.005% Oph (Xalatan 0.005% Oph), 1 DROP OPR HS Nitroglycerin (Nitrostat), 0.4 MG UT PRN Pancrelipase (Lipase-Protease- (Creon), 1 TAB PO DAILY Pravastatin Sodium (Pravachol), 40 MG PO HS Risperidone (Risperdal), 0.25 MG PO HS Timolol Maleate 0.5% Oph (Timoptic 0.5% Oph), 1 DROP OPB BID Scheduled PRN Artificial Tear Solution (Artificial Tears), 1 DROP OPB TID PRN for DRY EYES Allergies Coded Allergies: Vitamin K (Verified Allergy, Unknown, UNKNOWN, 12/02/16) Physical Exam Vital Signs Date Time Temp Pulse Resp B/P (MAP) Pulse Ox O2 Delivery O2 Flow Rate FiO2 04/15/17 00:02 0 Physical Exam CONSTITUTIONAL/VITAL SIGNS: Reviewed / noted above. GENERAL: Non-toxic in appearance. INTEGUMENTARY: Warm, dry, and [place]. HEAD: Normocephalic. EYES: without scleral icterus or trauma. ENT/OROPHARYNX: clear and moist. Endotracheal tube in place. LYMPHADENOPATHY/NECK: Is supple without lymphadenopathy or meningismus. RESPIRATORY: Lungs clear and equal. CARDIOVASCULAR: Asystole. GI/ABDOMEN: Soft and nontender. No organomegaly or pulsatile mass. No rebound or guarding. Normal bowel sounds. EXTREMITIES: Warm and well perfused. BACK: No CVA tenderness. NEUROLOGICAL: Unresponsive. PSYCHIATRIC: normal affect. MUSCULOSKELETAL: Normally developed with good muscle tone. Medical Decision & Procedures ED Course 0001: Previous medical records were reviewed. The patient was evaluated in room B1. A complete history and physical examination was performed. 0002: Time of . Medical Decision Differential includes acute cardiac dysrhythmia, microinfarction, CVA, TIA, dehydration, anemia, electrolyte disturbance, seizure, trauma, intracranial bleeding, acute vascular catastrophe, thoracic aortic dissection, PE, abdominal aortic aneurysm rupture, infection, hypoglycemia, overdose, trauma. This is a 76-year-old male who presents to the ED with a chief complaint of cardiac arrest. The patient was having an undescribed discomfort and was evaluated the [facility]. The [facility] is in the local [facility]. The patient had a witnessed cardiac arrest. The patient was transported here by EMS. EMS reports that they have administered 5 mg of epinephrine IV. He has had CPR since the initiation of ACLS. The patient's symptoms did not respond. The patient remained asystolic during his evaluation by EMS. The patient on arrival to the emergency department remains in asystole and without signs of life. The patient was pronounced shortly after his arrival. Medication Reconcilliation Current Medication List: was personally reviewed by me Impression Primary Impression: Cardiac arrest Scribe Attestation The scribe's documentation has been prepared under my direction and personally reviewed by me in its entirety. I confirm that the note above accurately reflects all work, treatment, procedures, and medical decision making performed by me. Departure Information Dispostion Referrals Son SHERIFF (PCP) Patient Instructions My [facility]
== END 2017-04-15 00:25 | disposition expired ==
LOC: EDBD 23:59 → C.EDB 04-15 → C.EDA 04-15 00:25
DX: I46.9 Cardiac arrest, cause unspecified (principal); N17.9 Acute kidney failure, unspecified; K52.9 Noninfective gastroenteritis and colitis, unspecified; E11.9 Type 2 diabetes mellitus without complications; Z86.718 Personal history of other venous thrombosis and embolism; E78.00 Pure hypercholesterolemia, unspecified; I10 Essential (primary) hypertension; I95.9 Hypotension, unspecified; K85.90 Acute pancreatitis without necrosis or infection, unspecified; Z83.3 Family history of diabetes mellitus; F17.210 Nicotine dependence, cigarettes, uncomplicated; Z79.82 Long term (current) use of aspirin; Z79.02 Long term (current) use of antithrombotics/antiplatelets; Z79.899 Other long term (current) drug therapy